=== PATIENT | male | born 1975 | race Caucasian/White ===

== ENCOUNTER 2019-01-05 11:38 | Emergency (ER) | payer BC, SELFPAY ==
[2019-01-05 11:39] VITALS: BP 155/92; PULSE 57; RESP 16; TEMP 36.3; O2SAT 98; BMI 34.1
--- NOTE | 2019-01-05 11:56 | CT_ITS ---
STUDY: CT ABDOMEN AND PELVIS WITHOUT CONTRAST REASON FOR EXAM: Male, 43 years old. Right lower quadrant pain RADIATION DOSAGE (If Supplied By Facility): CTDIvol = ( 18.31 ) mGy, DLP = ( 1043.32 ) mGycm TECHNIQUE: Transaxial images were obtained from the dome of the diaphragm to the symphysis pubis without oral contrast, and without intravenous contrast. Sagittal and coronal images were reconstructed. Individualized dose optimization techniques were used for this CT. COMPARISON: None. FINDINGS: Lack of intravenous contrast limits evaluation of abdominal and pelvic organs. The visualized lung bases are unremarkable. The visualized portions of the heart are within normal limits. Normal liver. Normal gallbladder and extrahepatic biliary system. Normal spleen. Normal pancreas. Normal bilateral adrenal glands. Normal right kidney. Normal left kidney. Normal visualized stomach. Normal small intestine. Normal colon. The appendix is visualized and appears normal. There is moderate aortobiiliac atherosclerotic disease there is mild infrarenal aortic ectasia. There is medially displaced curvilinear calcification in the infrarenal abdominal aorta which may represent intimal thickening and calcification, although dissection cannot be excluded.. Normal inferior vena cava. Normal retroperitoneum. Normal urinary bladder. Normal abdominal wall. Normal osseous structures. CT/Abdomen/Pelvis without Cont IMPRESSION: No acute abdominal or pelvic pathology. Chronic findings are described above. Electronically Signed: Janis Michael, at 12:50 EDT Tel , Service support ,
--- NOTE | 2019-01-05 11:59 | ED.DCSUM_ITS ---
- ER Visit Summary Date of Service: 01/05/19 Chief Complaint: [Abdominal pain] History of Present Illness: The patient is a 43 M [presents to the emergency department with complaint of abdominal pain x4 days. Patient states the pain is been intermittent and lasting up to 5 minutes at a time. Patient feels at times the pain rating to his right hip. This morning he had nausea and vomiting. Patient over the last 2 days has had 2 episodes of watery stool. He denies any fever. He denies urinary symptoms. He is never had pain like this before. Patient has a history of hypertension and high cholesterol. Patient has had 2 back surgeries in the past. Patient states food does not seem to affect his pain and is been eating and drinking normally. Patient also states pain worse with certain movements.] Physical Examination: [HEENT-PERRLA, EOMI. Cranial nerves II through XII grossly intact. TMs clear. Mucous membranes moist. No adenopathy. Cardiovascular-regular rate and rhythm without murmur or ectopy Lungs-clear to auscultation, chest wall stable without crepitus or subcu emphysema Abdomen-normoactive bowel sounds, soft. Patient has tenderness palpation over right lower quadrant over McBurney's. Patient has guarding. There is no rebound, rigidity, or perineal signs. Extremities-intact ?4, normal range of motion, normal pulses, atraumatic] Test Results: [CBC with differential obtained showed a white count of 7.3, hemoglobin 14, hematocrit 42, platelets 197. Chemistries were unremarkable. LFTs were normal. Urinalysis showed 10-25 RBCs otherwise no signs of infection. CT scan of the abdomen pelvis without contrast initially was unremarkable other than plaque noted within the terminal aorta and could not rule out dissection. CTA of the abdomen was obtained which showed no evidence of dissection. ] Emergency Department Course and Treatment: [Patient did not want anything for pain initially. ] Treatment Plan: [Patient given a prescription for Stigler for severe pain and advised to follow-up with primary care physician in 3 to 5 days.] Disposition: [Discharged home in stable condition] Impression: [Abdominal pain-etiology uncertain] This note was generated with [employer] software. It may contain incorrect words, spelling, and punctuation that were not noted in review of the chart prior to signing ED Disposition - Plan for ED Patient: Referrals: NOT,DEFINED [NON-STAFF] -
[2019-01-05] MEDS: 0.9% Normal Saline 1,000 ML 125 ML IV (12:18)
[2019-01-05 12:25] LABS: Absolute Lymphocyte Count 2.37 X10^3/ul (0.83-4.51); Basophil# 0.05 X10^3/uL; Basophil% 0.7 % (0-1); Eosinophil# 0.35 X10^3/uL; Eosinophils% 4.8 % (0-5); Hematocrit 41.7 % (40-54); Hemoglobin 14.1 g/dl (13.0-16.5); Lymphocyte # 2.37 X10^3/ul (4.0); Lymphocyte % 32.4 % (19-41); Mean Corp Hgb Conc 33.8 g/gl (32-36); Mean Corpuscular Hgb 30.6 pg (27.0-32.0); Mean Corpuscular Volume 90.5 fL (80-94); Mean Platelet Vol. 9.7 fl (6.2-12.0); Monocyte% 6.8 % (0-10); Neutrophil # 4.02 X10^3/uL (2.7-7.7); Neutrophil % 54.9 % (47-70); Platelet Count 197 K/mm3 (150-450); RBC Distribution Width CV 13.7 % (11.6-14.6); RBC Distribution Width SD 44.9 fl (35.1-43.9); Red Blood Count 4.61 M/mm3 (4.6-6.2); White Blood Count 7.3 K/mm3 (4.4-11.0)
[2019-01-05 12:26] LABS: POSITIVE COUNT NO; POSITIVE DIFFERENTIAL NO; POSITIVE MORPHOLOGY NO
[2019-01-05 12:38] LABS: ALB/GLOB Ratio 1.2 RATIO (0.9-2.4); AST(SGOT) 17 U/L (15-37); Alanine Aminotransfer ALT/SGPT 25 U/L (16-61); Albumin, Serum 3.5 g/dL (3.2-5.0); Alkaline Phosphatase 50 U/L (45-117); Anion Gap 4 (5-15); BUN 13 mg/dL (7-18); BUN/Creat Ratio 10.2 RATIO (10-20); Calcium,Total 8.7 mg/dL (8.5-10.1); Chloride 110 mmol/L (98-107); Creatinine, Serum 1.27 mg/dL (0.70-1.30); EST Glomerular Filtration Rate 66 mL/min (>60); Est Glom Filt Rate - Afr Amer 80 mL/min (>60); Glucose 90 mg/dL (74-106); Potassium 4.1 mmol/L (3.5-5.1); Protein, Total 6.5 g/dL (6.4-8.2); Sodium Level 141 mmol/L (136-145)
--- NOTE | 2019-01-05 13:04 | CT_ITS ---
STUDY: CTA OF THE ABDOMINAL AORTA AND BILATERAL LOWER EXTREMITIES REASON FOR EXAM: Male, 43 years old. Evaluate aortic abnormality RADIATION DOSAGE (If Supplied By Facility): CTDIvol = ( 29.37 ) mGy, DLP = ( 982.75 ) mGycm TECHNIQUE: Axial CT angiography multi-detector data acquisition was obtained from the lung bases to the mid pelvis following intravenous administration of 100 IV Isovue 300. Axial images and MIP images were reconstructed from the axial data set. Post-processing of the angiographic images was performed, with multiplanar reformation and 3D reconstruction. Individualized dose optimization techniques were used for this CT. TECHNICAL QUALITY: Good COMPARISON: None. Findings: The visualized lung bases are unremarkable. The visualized portions of the heart are within normal limits. Normal liver. Normal gallbladder and extrahepatic biliary system. Normal spleen. Normal pancreas. Normal bilateral adrenal glands. Normal right kidney. Normal left kidney. Normal visualized stomach. Normal small intestine. Normal colon. The appendix is visualized and appears normal. There is a noncalcified atheromatous plaque as well as atherosclerotic disease throughout much of the infrarenal abdominal aorta and bilateral common iliac arteries. This is most prominent on series 2 image 98, where there is mild ectasia and approximately 20-25% narrowing of the lumen. There is approximately 25% luminal narrowing of the proximal left common iliac artery. There is 20% narrowing of the distal right common iliac artery. There is approximately 40% narrowing of the proximal right internal iliac artery. There is no dissection. Normal inferior vena cava. Normal retroperitoneum. Normal abdominal wall. Normal osseous structures. CT/CTA Abdomen W/WO Contrast IMPRESSION: Noncalcified atheromatous plaque as well as atherosclerotic disease throughout much of the infrarenal abdominal aorta and bilateral common iliac arteries. This is most prominent on series 2 image 98, where there is mild ectasia and approximately 20-25% narrowing of the lumen. There is approximately 25% luminal narrowing of the proximal left common iliac artery. There is 20% narrowing of the distal right common iliac artery. There is approximately 40% narrowing of the proximal right internal iliac artery. There is no dissection. Electronically Signed: Janis Michael, at 13:57 EDT Tel , Service support ,
[2019-01-05 13:54] LABS: Bacteria 0 SEEN /hpf (None Seen); Mucous, Urine 0 SEEN /hpf (<or=2+)
[2019-01-05 13:56] VITALS: BP 134/70; PULSE 50; RESP 18; O2SAT 97
--- NOTE | 2019-01-05 13:57 | ED.RN ---
DENIES ABD PAIN AT THIS TME.
[2019-01-05 13:58] LABS: Color, Urine Yellow (Yellow); Glucose, Dipstick Normal (Normal); Ketone-Dipstick 5 mg/dl (Negative); Leukocyte Esterase-Dipstick 25 /ul (Negative); Nitrite-Dipstick Negative (Negative); Occult Blood-Urine 150 /ul (Negative); Protein-Dipstick 100 mg/dl (Negative); Specific Gravity, Urine 1.025 (1.002-1.030); Urine Bilirubin Dipstick Negative (Negative); Urine Clarity Sl. Cloudy (Clear); Urine Urobilinogen 1 mg/dl (Normal)
[2019-01-05 14:09] LABS: Red Blood Cells-Urine 10-25 SEEN /hpf (0-5); Squamous Epithelial Cells - UA 0-5 SEEN /hpf (0-5); White Blood Cells 0-5 SEEN /hpf (0-5)
--- NOTE | 2019-01-05 14:15 | ED.DEP ---
ED Disposition - Plan for ED Patient: Instructions: ED Abdominal Pain Unkn Cause Prescriptions: Hydrocodone Bitart/Apap 5-325 [[place] 5MG-325MG] 1 tab PO Q4H PRN PRN 2 Days #10 tab PRN Reason: Pain Referrals: NOT,DEFINED [NON-STAFF] - 3-5 Days
[2019-01-05 14:27] VITALS: BP 142/62; PULSE 71; RESP 17; O2SAT 98
== END 2019-01-05 14:30 | disposition home or self-care (01) ==
LOC: ED 12:23
PROVIDERS: Emergency Provider Emergency Medicine; PCP Family Medicine; Referring Provider Family Medicine
DX: R10.31 Right lower quadrant pain (principal); R11.2 Nausea with vomiting, unspecified; R19.7 Diarrhea, unspecified; I10 Essential (primary) hypertension; E78.00 Pure hypercholesterolemia, unspecified; Z79.82 Long term (current) use of aspirin; Z79.899 Other long term (current) drug therapy; Z72.0 Tobacco use
CPT/HCPCS: 74175; 74176; 80053; 81001; 85025; 96360; 96361; 99284; J7030; Q9967; A4216

== ENCOUNTER → 2019-01-26 | Outpatient (CLI) | payer BC, SELFPAY ==
[2019-01-05 11:39] VITALS: BMI 34.1
--- NOTE | 2019-01-26 14:50 | RAD_ITS ---
STUDY: X-RAY - LUMBAR SPINE REASON FOR EXAM: Male, 43 years old. Lower back pain TECHNIQUE: 5 view(s) of the lumbar spine were obtained. COMPARISON: None FINDINGS: There is no evidence of fracture or dislocation in the lumbar spine. There is mild to moderate disc space loss from L4 through S1. Facet arthropathy is present at the L5-S1 level. There are no significant degenerative changes. RAD/L/S Spine Min 4 Views IMPRESSION: No fracture or dislocation in the lumbar spine. Mild to moderate degenerative changes from L4 through S1. Electronically Signed: Jamaal Stark, at 21:36 EDT Tel , Service support ,
== END | disposition home or self-care (01) ==
LOC: RAD 14:45
PROVIDERS: Family Provider Family Medicine; PCP Family Medicine; Referring Provider Anesthesiology Pain Medicine; Visit Provider Anesthesiology Pain Medicine
DX: M51.37 Other intervertebral disc degeneration, lumbosacral region (principal)
CPT/HCPCS: 72110

== ENCOUNTER 2020-02-24 13:34 | Inpatient (IN) | payer OTHER, SELFPAY ==
[2020-02-24] VITALS (8 sets, daily range): BP systolic 140–155; BP diastolic 92–104; PULSE 66–83; RESP 16–18; TEMP 36.8–37.1; O2SAT 95–98; BMI 35.9; BMI 35.3
--- NOTE | 2020-02-24 14:03 | CT_ITS ---
STUDY: CT ABDOMEN AND PELVIS WITH CONTRAST REASON FOR EXAM: Male, 44 years old. LT SIDED ABD PAIN, PERITONITIS, HTN, PREV BACK SURG RADIATION DOSAGE (If Supplied By Facility): CTDIvol = ( 16.64 ) mGy, DLP = ( 1260.32 ) mGycm TECHNIQUE: Transaxial images were obtained from the dome of the diaphragm to the symphysis pubis without oral contrast. IV 100mL Isovue-300 was administered. Sagittal and coronal images were reconstructed. Individualized dose optimization techniques were used for this CT. COMPARISON: Comparison is made with prior examination dated January 05, 2019. FINDINGS: Mild increased markings at the lung bases with areas of confluence suggestive of bibasilar atelectasis. The visualized portions of the heart are within normal limits. Normal liver. Normal gallbladder and extrahepatic biliary system. Normal spleen. Normal pancreas. Normal bilateral adrenal glands. Normal right kidney. Normal left kidney. Normal visualized stomach. Normal small intestine. Increased peritoneal markings with thickening of the left pararenal space. There is circumferential mucosal thickening of the region of the splenic flexure as well as the descending colon increased markings are seen in the surrounding peritoneal fat. Findings are suggestive of colitis. The appendix is visualized and appears normal. There is scattered atherosclerotic calcification of the abdominal aorta, without a demonstrated aneurysm. Normal inferior vena cava. Normal retroperitoneum. Normal urinary bladder. Normal abdominal wall. Mild degree of disc space narrowing and disc degeneration at the L4-L5 level. CT/Abdomen/Pelvis W IV Cont ONLY IMPRESSION: Findings in keeping with a colitis involving the region of the splenic flexure and descending colon down to the sigmoid colon with increased markings in the surrounding peritoneal fat as well as the anterior pararenal space on the left side. Electronically Signed: Tristin Ozuna, at 15:18 EDT , Service support ,
[2020-02-24 14:27] LABS: Absolute Lymphocyte Count 1.54 X10^3/uL (0.83-4.51); Absolute Neutrophil Count 9.1 X10^3/uL (2.0-7.7); Basophil# 0.05 X10^3/uL; Basophil% 0.4 % (0-1); Eosinophil# 0.12 X10^3/uL; Hematocrit 46.6 % (40-54); Hemoglobin 15.5 g/dL (13.0-16.5); Lymphocyte # 1.54 X10^3/ul (4.0); Lymphocyte % 13.2 % (19-41); Mean Corp Hgb Conc 33.3 g/dL (32-36); Mean Corpuscular Hgb 30.5 pg (27.0-32.0); Mean Corpuscular Volume 91.6 fL (80-94); Mean Platelet Vol. 10.1 fl (6.2-12.0); Monocyte# 0.84 X10^3/uL; Monocyte% 7.2 % (0-10); NRBC Flagged by Analyzer 0 % (0-5); Neutrophil # 9.11 X10^3/uL (2.7-7.7); Neutrophil % 77.9 % (47-70); Platelet Count 204 K/mm3 (150-450); RBC Distribution Width CV 13.1 % (11.6-14.6); RBC Distribution Width SD 43.8 fl (35.1-43.9); Red Blood Count 5.09 M/mm3 (4.6-6.2); White Blood Count 11.7 K/mm3 (4.4-11.0)
[2020-02-24 14:38] LABS: ALB/GLOB Ratio 1.1 RATIO (0.9-2.4); AST(SGOT) 12 U/L (15-37); Alanine Aminotransfer ALT/SGPT 20 U/L (16-61); Albumin, Serum 3.6 g/dL (3.2-5.0); Alkaline Phosphatase 44 U/L (45-117); Anion Gap 6 (5-15); BUN 15 mg/dL (7-18); BUN/Creat Ratio 11.8 RATIO (10-20); Chloride 104 mmol/L (98-107); Creatinine, Serum 1.27 mg/dL (0.70-1.30); EST Glomerular Filtration Rate 66 mL/min (>60); Est Glom Filt Rate - Afr Amer 79 mL/min (>60); Estimated Creatinine Clearance 82.32 ml/min; Globulin 3.2 g/dL (2.2-4.2); Glucose 98 mg/dL (74-106); Potassium 3.8 mmol/L (3.5-5.1); Protein, Total 6.8 g/dL (6.4-8.2); Sodium Level 139 mmol/L (136-145)
[2020-02-24] MEDS: Ondansetron 4 MG/2 ML Vial IV (14:40)
[2020-02-24] MEDS: Morphine 4 MG/ML Syringe IV ×3 (14:40→23:51)
[2020-02-24 14:47] LABS: Lactic Acid 0.9 mmol/L (0.4-1.9)
--- NOTE | 2020-02-24 14:57 | ED.DCSUM_ITS ---
History of Present Illness Chief Complaint: Abd Pain Informant: Patient, Significant Other Onset: Yesterday - Onset of pain 1600 Context: Sudden Onset Timing: Continuous Quality: Pain Location: Left side worse left upper quadrant Current Severity: Mild Maximum Severity: Severe Worsened by: Movement, screening Relieved by: Nothing Associated Symptoms: Nausea, vomiting diarrhea Narrative: Patient is a 44-year-old male with past medical history of hypertension hypercholesterolemia who presents with left side abdominal pain started yesterday at 1600. There is no history of trauma. Prior to that he was working on a car. He does report nausea and vomiting. He reports 3 loose stools after taking laxative because he thought he was constipated. He has never had a bowel obstruction. He denies history of abdominal surgery. He denies dysuria, frequency, urgency or hematuria. He denies respiratory or upper respiratory infectious symptoms. He denies chest pain or cardiac symptoms. He denies history of diverticulitis. He denies history of renal ureterolithiasis. He has not noted a rash. He has taken ibuprofen for it with minimal improvement. Prior similar symptoms: No Recent Illness/Hospitalization: No - Past Medical History (1) Hypertension Status: Chronic (2) History of hypercholesterolemia Status: Acute Past Medical History - Allergies and Home Meds Allergies/Adverse Reactions: Allergies bee venom protein (honey bee) Allergy (Verified 02/24/20 13:35) Angioedema bupropion HCl [From Wellbutrin] Allergy (Verified 02/24/20 13:35) SEIZURES SEIZURES Primary Care Physician: Dex Elizabeth DO [Primary Care Provider] - Prior records reviewed: Yes Surgical History: no surgical history Lives: Spouse/ Significant Other Smoking Status: Current every day smoker Alcohol: None Drugs: None Review of Systems General: Denies: Chills, Fever, Malaise, Sweats Eyes: Denies: Visual changes - bilaterally, Blurred Vision - bilaterally ENT: Denies: Rhinorrhea, Sore throat Cardiovascular: Denies: Chest pain, Palpitations Respiratory: Denies: Dyspnea, Cough, Dyspnea on exertion Gastrointestinal: Reports: Abdominal pain, Nausea, Vomiting, Diarrhea, Constipation. Denies: Melena, Hematochezia, -, - Genitourinary: Denies: Dysuria, Hematuria, Frequency Musculoskeletal: Denies: Myalgias, Arthralgias, Neck pain, Back pain, Swelling, Extremity Pain, -, - Skin: Denies: Rash, Wounds Neurological: Denies: Headache, Weakness, Parasthesia, Numbness Hematologic: Denies: Easy bruising, Easy bleeding Physical Exam Vital Signs/Narrative: Vital Signs Temp Pulse Resp BP Pulse Ox 02/24/20 14:42 18 02/24/20 13:35 98.2 F 83 16 143/92 H 95 Inital Vital Signs reviewed: Yes General: Well nourished, Well developed, Obese, No Acute Distress Head: Normocephalic, Atraumatic Eyes: Perrl, EOMI. Negative for: Pale conjunctiva, Scleral icterus ENT: Moist mucous membranes, No rhinorrhea, TM's clear Neck: Supple, Nontender, No lymphadenopathy, No JVD Cardiovascular: Regular rate, Regular rhythm, No murmurs, Normal S1, Normal S2 Respiratory: No distress, CTA bilaterally, Chest nontender Abdomen: Soft, No masses, Tender, Guarding, Rebound tenderness, Hypoactive bowel sounds. Negative for: Nontender, Nondistended, Normal bowel sounds, Hyperactive bowel sounds, Hepatomegaly, Splenomegaly, Mass, Pulsatile mass, Ventral hernia, Umbilical hernia Rectal: Deferred Back: Nontender, Normal Inspection. Negative for: CVA tenderness Extremities: Nontender, No edema Skin: Normal color, No rash, No Trauma. Negative for: Cyanosis, Diaphoresis, Jaundice Neurological: Alert, Oriented x3, Cranial nerves II-XII grossly intact, Normal Strength, Normal Sensation Psychological: Normal affect, Normal Mood Diagnostic/Tx/Re-eval Impressions Abdomen/Pelvis CT 02/24/20 14:03 IMPRESSION: Findings in keeping with a colitis involving the region of the splenic flexure and descending colon down to the sigmoid colon with increased markings in the surrounding peritoneal fat as well as the anterior pararenal space on the left side. Electronically Signed: Tristin Ozuna, at 15:18 EDT , Service support , 02/24/20 14:03 Abdomen/Pelvis W IV Cont ONLY [CT] Stat Laboratory Results 02/24/20 02/24/20 02/24/20 14:15 14:15 14:15 WBC 11.7 H RBC 5.09 Hgb 15.5 Hct 46.6 MCV 91.6 MCH 30.5 MCHC 33.3 RDW Std Deviation 43.8 RDW Coeff of Shad 13.1 Plt Count 204 MPV 10.1 Immature Gran % (Auto) 0.300 Neut % (Auto) 77.9 H Lymph % (Auto) 13.2 L [place] % (Auto) 7.2 Eos % (Auto) 1.0 Baso % (Auto) 0.4 Absolute Neuts (auto) 9.1 H Absolute Lymphs (auto) 1.54 Nucleated RBC % 0 Sodium 139 Potassium 3.8 Chloride 104 Carbon Dioxide 29.0 Anion Gap 6 BUN 15 Creatinine 1.27 Estim Creat Clear Calc 82.32 Est GFR (MDRD) Af Amer 79 Est GFR (MDRD) Non-Af 66 BUN/Creatinine Ratio 11.8 Glucose 98 Lactic Acid 0.9 Calcium 9.0 Total Bilirubin 0.60 AST 12 L ALT 20 Alkaline Phosphatase 44 L Total Protein 6.8 Albumin 3.6 Globulin 3.2 Albumin/Globulin Ratio 1.1 Patient was informed of his results. Patient has peritonitis left upper and left lower quadrant. Since he has peritonitis even though his white count is only slightly elevate 11.7 he will receive a dose of Zosyn and hospitalist has been paged for admission. - Medical Decision Making Sided abdominal pain and peritoneal findings need to evaluate for perforated viscus, diverticulitis, atypical presentation for appendicitis, inflammatory bowel disorder. CT of the abdomen with IV contrast was ordered along with blood work. White count is elevated 11.7 thousand. He was medicated with IV Zofran and morphine. He also received a 500 cc bolus of normal saline. ED Disposition - Plan for ED Patient: Disposition: Acute Care Hospital [facility] Diagnosis: Colitis, acute, Peritonitis, acute generalized Referrals: Dex Elizabeth DO [Primary Care Provider] -
[2020-02-24] MEDS: morphine 8 MG/ML Syringe 6 MG IV (17:01)
--- NOTE | 2020-02-24 17:06 | HP.PCM_ITS ---
History of Present Illness Date of Admission: 02/24/20 Chief Complaint: abdominal pain The patient is a 44 year old M with a past medical history as outlined was admitted through the ED on 02/24/2020 with a complaint of abdominal pain which started on the day of admission. Pain was initially left-sided and became generalized, was sharp and cramping with no aggravating or relieving factors. Patient states the day before admission, he thought he was constipated so he took a laxative and had 3 episodes of diarrhea afterwards. He denies any fever or chills but admits to having a few episodes of vomiting. He is never had such abdominal pain before. Review of systems is otherwise negative. On admission in the ED, vitals showed temperature of 98.3 Fahrenheit with blood pressure of 140/98, pulse rate of 67 and respiratory rate of 18. He was saturating at 98% on room air. Chemistry was essentially unremarkable and CBC showed hemoglobin of 15.5 with WBC of 11.7. CT of the abdomen and pelvis showed colitis involving the region of the splenic flexure and descending colon down to the sigmoid colon with increased markings in the surrounding peritoneal fat as well as the anterior pararenal space on the left side. He has been admitted to be managed for acute colitis. [] Past Medical History Past Medical History (Chronic Problems): Chronic Problems Hypertension (Chronic) Allergies bee venom protein (honey bee) Allergy (Verified 02/24/20 13:35) Angioedema bupropion HCl [From Wellbutrin] Allergy (Verified 02/24/20 13:35) SEIZURES SEIZURES Home Medications: Ambulatory Orders Medication Instructions Recorded Aspirin [Aspirin, Baby] 81 mg PO DAILY@0800 06/18/13 Gabapentin [Neurontin] 300 mg PO TID PRN PRN 06/18/13 Lisinopril [Zestril] 20 mg PO DAILY 06/18/13 Metoprolol Tartrate [Lopressor] 50 mg PO BID 06/18/13 Pravastatin [Pravachol] 80 mg PO DAILY 06/18/13 Epi Pen (for allergic rxn) [Epi 0.3 mg IM X1 #1 syringe 04/19/14 Pen] Baclofen [Lioresal] 10 mg PO DAILY PRN PRN 02/24/20 Meloxicam [Mobic] 15 mg PO DAILY 02/24/20 Varenicline Tartrate [Chantix] 1 tab PO BID 02/24/20 Surgical History: no surgical history Lives: Spouse/ Significant Other Smoking Status: Heavy Smoker (>10/day) Tobacco Use: Cigarettes Alcohol: None Drugs: None Review of Systems Constitutional: Denies: Chills, Fever, Malaise, Weakness, Weight Change Eyes: Denies: Blurred vision HEENT: Denies: Head Aches, Sinus Congestion, Sinus Drainage Cardiovascular: Denies: Chest Pain, Palpitations Respiratory: Denies: Cough, Shortness of Breath, Shortness of breath at rest, Shortness of breath upon exertion, Sputum production Gastrointestinal: Reports: Abdominal Pain, Diarrhea, Vomiting. Denies: Dyspepsia, Hematemesis, Hematochezia, Nausea Genitourinary: Denies: Dysuria Musculoskeletal: Denies: Joint Pain, Joint Tenderness Skin: Denies: Rash, Wounds Neurological: Denies: Numbness, Tingling, Focal weakness Psychiatric: Denies: Anxiety, Depression, Homicidal Ideations, Suicidal Ideations Hematologic/ Lymphatic: Denies: Easy Bruising, Easy Bleeding VTE Information - Inpt Only VTE Present on Admission: No VTE Pharm Prophylaxis ordered?: Yes Patient Problems: Active and Suspected Problems Colitis, acute (Acute) Peritonitis, acute generalized (Acute) - Physical Exam Vitals/I&O's: Vital Signs Temp Pulse Resp BP Pulse Ox 98.2 F 68 18 155/97 H 98 02/24/20 13:35 02/24/20 16:53 02/24/20 16:53 02/24/20 16:53 02/24/20 16:53 Oxygen Delivery Method Room Air Weight: 265 lb Body Mass Index (BMI) 35.9 General: Alert, Oriented x3, Cooperative, No apparent distress HEENT: Atraumatic, PERRLA, EOMI, Normocephalic Oral: Dry Mucosa Neck: Supple, No JVD, Negative Carotid Bruits Lungs: Clear to auscultation, Normal air movement, No rhonchi, No wheeze Cardiovascular: Regular rate, Regular Rhythm, Normal S1, Normal S2, No murmurs Abdomen: Bowel Sounds Present, Soft, - - moderate tenderness, mainly in the suprapubic and right lower quadrant region. no guarding or rebound tenderness Extremities: No clubbing, No cyanosis, No edema, Capillary Refill Less than 3 Seconds Skin: No rashes, No breakdown Musculoskeletal: No Tenderness to Palpation of Joints or Extremities Lymphatic: No Cervical, Supraclavicular, or Inguinal Adenopathy Neurological: Cranial nerves II-XII grossly intact, Neuro grossly intact, Motor Exam 5/5 strength throughout Psych/Mental Status: Normal Affect, Appropriate, Alert and oriented to time, place, person, mood and affect Laboratory Results 02/24/20 14:15: WBC 11.7 H, RBC 5.09, Hgb 15.5, Hct 46.6, MCV 91.6, MCH 30.5, MCHC 33.3, RDW Std Deviation 43.8, RDW Coeff of Shad 13.1, Plt Count 204, MPV 10.1, Immature Gran % (Auto) 0.300, Neut % (Auto) 77.9 H, Lymph % (Auto) 13.2 L, [place] % (Auto) 7.2, Eos % (Auto) 1.0, Baso % (Auto) 0.4, Absolute Neuts (auto) 9.1 H, Absolute Lymphs (auto) 1.54, Nucleated RBC % 0 02/24/20 14:15: Sodium 139, Potassium 3.8, Chloride 104, Carbon Dioxide 29.0, Anion Gap 6, BUN 15, Creatinine 1.27, Estim Creat Clear Calc 82.32, Est GFR (MDRD) Af Amer 79, Est GFR (MDRD) Non-Af 66, BUN/Creatinine Ratio 11.8, Glucose 98, Calcium 9.0, Total Bilirubin 0.60, AST 12 L, ALT 20, Alkaline Phosphatase 44 L, Total Protein 6.8, Albumin 3.6, Globulin 3.2, Albumin/Globulin Ratio 1.1 02/24/20 14:15: Lactic Acid 0.9 Diagnostic Data Abdomen/Pelvis CT 02/24/20 14:03 IMPRESSION: Findings in keeping with a colitis involving the region of the splenic flexure and descending colon down to the sigmoid colon with increased markings in the surrounding peritoneal fat as well as the anterior pararenal space on the left side. Electronically Signed: Tristin Ozuna, at 15:18 EDT , Service support , Current Medications Piperacillin Sod/Tazobactam (Sod 4.5 gm/ Sodium Chloride) 100 mls @ 200 mls/hr IV X1 ONE Stop: 02/24/20 17:06 Last Admin: 02/24/20 17:01 Dose: 200 mls/hr Documented by: Assessment/Plan All Active Problems History of hypercholesterolemia (Acute) Colitis, acute (Acute) Peritonitis, acute generalized (Acute) 44 y/o admitted with a complaint of abdominal pain 1. Acute colitis * admit to Med surg * CT abdomen and pelvis showed colitis involving the region of the splenic flexure and descending colon down to the sigmoid colon with increased markings in the surrounding peritoneal fat as well as the anterior pararenal space on the left side. * Keep NPO * wbc is 11.7 * hydrate with IVF NS @ 150cc/hr * give IV morphine prn * start IV zosyn * consult general surgery * 2. Hypertension: on lisinopril and metoprolol. 3. Hyperlipidemia: on statin DVT prophylaxis; lovenox Code status: full code * Patient counseled extensively about different types of CODE STATUS including full code, DNR CCA and DNR CCA. Patient elects to be full code. * Total [id number] time 16 minutes. Inpatient E&M: 68256 Init Hosp L3 Procedures: 86055 Advncd Care Plan 30 Min
[2020-02-24] MEDS: 0.9% Normal Saline 1,000 ML 150 ML IV (18:42)
--- NOTE | 2020-02-24 18:53 | CON.PCM_ITS ---
Problem List (1) Colitis, acute Status: Acute Reason for Consult Date of Consultation: 02/24/20 History of Present Illness: The patient is a 44 year old M with a past medical history as outlined was admitted through the ED on 02/24/2020 with a complaint of abdominal pain which started on the day of admission. He was in the process of changing the brakes on his 's car. Pain was initially left-sided and became generalized, was sharp and cramping with no aggravating or relieving factors. Patient states the day before admission, he thought he was constipated so he took a laxative and had 3 episodes of diarrhea afterwards. He denies any fever or chills but admits to having a few episodes of vomiting. He is never had such abdominal pain before. Review of systems is otherwise negative. On admission in the ED, vitals showed temperature of 98.3 Fahrenheit with blood pressure of 140/98, pulse rate of 67 and respiratory rate of 18. He was saturating at 98% on room air. Chemistry was essentially unremarkable and CBC showed hemoglobin of 15.5 with WBC of 11.7. CT of the abdomen and pelvis showed colitis involving the region of the splenic flexure and descending colon down to the sigmoid colon with increased markings in the surrounding peritoneal fat as well as the anterior pararenal space on the left side. He has been admitted to be managed for acute colitis. Past Medical History Past Medical History (Chronic Problems): Chronic Problems Hypertension (Chronic) Allergies bee venom protein (honey bee) Allergy (Verified 02/24/20 13:35) Angioedema bupropion HCl [From Wellbutrin] Allergy (Verified 02/24/20 13:35) SEIZURES SEIZURES Home Medications: Ambulatory Orders Medication Instructions Recorded Aspirin [Aspirin, Baby] 81 mg PO DAILY@0800 06/18/13 Gabapentin [Neurontin] 300 mg PO TID PRN PRN 06/18/13 Lisinopril [Zestril] 20 mg PO DAILY 06/18/13 Metoprolol Tartrate [Lopressor] 50 mg PO BID 06/18/13 Pravastatin [Pravachol] 80 mg PO DAILY 06/18/13 Epi Pen (for allergic rxn) [Epi 0.3 mg IM X1 #1 syringe 04/19/14 Pen] Baclofen [Lioresal] 10 mg PO DAILY PRN PRN 02/24/20 Meloxicam [Mobic] 15 mg PO DAILY 02/24/20 Varenicline Tartrate [Chantix] 1 tab PO BID 02/24/20 Surgical History: no surgical history Lives: Spouse/ Significant Other Smoking Status: Heavy Smoker (>10/day) Tobacco Use: Cigarettes Alcohol: None Drugs: None - *Family History Maternal History Items: No pertinent history Review of Systems Constitutional: Reports: Anorexia. Denies: Chills, Fever Cardiovascular: Reports: Chest Pain Respiratory: Denies: Cough, Hemoptysis, Shortness of breath at rest, Shortness of breath upon exertion, Wheezing Gastrointestinal: Reports: Abdominal Pain, Diarrhea, Vomiting. Denies: Hematochezia, Melena Genitourinary: Denies: Dysuria, Frequency, Hematuria, Urgency Patient Problems: Active and Suspected Problems Colitis, acute (Acute) Peritonitis, acute generalized (Acute) - Physical Exam Vitals/I&O's: Vital Signs Temp Pulse Resp BP Pulse Ox 98.3 F 67 18 140/98 H 98 02/24/20 17:51 02/24/20 17:51 02/24/20 17:51 02/24/20 17:51 02/24/20 17:51 Oxygen Delivery Method Room Air Weight: 260 lb 4.8 oz Body Mass Index (BMI) 35.3 Intake and Output for Last 24 Hours 02/22/20 02/23/20 02/24/20 23:59 23:59 23:59 Intake Total 600 / 600 Balance 600 / 600 General: Alert, Oriented x3 Neck: Supple, No JVD Lungs: Clear to auscultation Abdomen: Bowel Sounds Present, Distended, Obese, Tender - No peritoneal signs or rebound is identified Extremities: No clubbing, No cyanosis, No edema Skin: No rashes, No breakdown Laboratory Results 02/24/20 14:15: WBC 11.7 H, RBC 5.09, Hgb 15.5, Hct 46.6, MCV 91.6, MCH 30.5, MCHC 33.3, RDW Std Deviation 43.8, RDW Coeff of Shad 13.1, Plt Count 204, MPV 10.1, Immature Gran % (Auto) 0.300, Neut % (Auto) 77.9 H, Lymph % (Auto) 13.2 L, [place] % (Auto) 7.2, Eos % (Auto) 1.0, Baso % (Auto) 0.4, Absolute Neuts (auto) 9.1 H, Absolute Lymphs (auto) 1.54, Nucleated RBC % 0 02/24/20 14:15: Sodium 139, Potassium 3.8, Chloride 104, Carbon Dioxide 29.0, Anion Gap 6, BUN 15, Creatinine 1.27, Estim Creat Clear Calc 82.32, Est GFR (MDRD) Af Amer 79, Est GFR (MDRD) Non-Af 66, BUN/Creatinine Ratio 11.8, Glucose 98, Calcium 9.0, Total Bilirubin 0.60, AST 12 L, ALT 20, Alkaline Phosphatase 44 L, Total Protein 6.8, Albumin 3.6, Globulin 3.2, Albumin/Globulin Ratio 1.1 02/24/20 14:15: Lactic Acid 0.9 Current Medications Dextrose (D50w Syringe) 0 gm IV X1 PRN; Protocol PRN Reason: Hypoglycemia Enoxaparin Sodium (Lovenox) 40 mg SC DAILY KADEN Epinephrine HCl () 0.3 mg IM X1 PRN PRN Reason: ALLERGIC RXN Glucagon () 1 mg IM .X1 PRN PRN Reason: Hypoglycemia Sodium Chloride () 1,000 mls @ 150 mls/hr IV .[id number] KADEN Stop: 02/25/20 07:29 Last Admin: 02/24/20 18:42 Dose: 150 mls/hr Documented by: Cefepime HCl 1 gm/ Sodium (Chloride) 50 mls @ 100 mls/hr IV Q8 KADEN Metronidazole (Flagyl) 500 mg in 100 mls @ 100 mls/hr IV Q8 KADEN Morphine Sulfate () 4 mg IV Q3H PRN PRN PRN Reason: Pain Score 6-10/10 Ondansetron HCl (Zofran) 4 mg IV Q8H PRN PRN PRN Reason: NAUSEA/VOMITING Sodium Chloride () 10 - 40 ml IV UD PRN PRN Reason: SALINE FLUSH Assessment/Plan All Active Problems History of hypercholesterolemia (Acute) Colitis, acute (Acute) Peritonitis, acute generalized (Acute) At the present time I agree with medical management. It would be unlikely that we will have to do any surgery on him. Would make him n.p.o. until his pain has resolved. I do not think I am going to want to do a colonoscopy on him at this admission hopefully he will resolve and I will see him as an outpatient and do a colonoscopy then. Office Visits / Consults: [id number] IP Consult L3
[2020-02-24] MEDS: metroNIDAZOLE 500 MG/100 ML BAG 100 MG IV (19:10)
[2020-02-25] VITALS (11 sets, daily range): BP systolic 134–147; BP diastolic 75–99; PULSE 75–100; RESP 16–18; TEMP 37.1–37.3; O2SAT 92–96
[2020-02-25] MEDS: 0.9% Normal Saline 1,000 ML 150 ML IV (03:10)
[2020-02-25] MEDS: metroNIDAZOLE 500 MG/100 ML BAG 100 MG IV ×3 (06:10→21:22)
[2020-02-25 06:14] LABS: Absolute Lymphocyte Count 1.25 X10^3/uL (0.83-4.51); Absolute Neutrophil Count 7.8 X10^3/uL (2.0-7.7); Basophil# 0.04 X10^3/uL; Basophil% 0.4 % (0-1); Eosinophil# 0.14 X10^3/uL; Eosinophils% 1.4 % (0-5); Hematocrit 45.9 % (40-54); Hemoglobin 14.9 g/dL (13.0-16.5); Lymphocyte # 1.25 X10^3/ul (4.0); Lymphocyte % 12.4 % (19-41); Mean Corp Hgb Conc 32.5 g/dL (32-36); Mean Corpuscular Hgb 30.3 pg (27.0-32.0); Mean Corpuscular Volume 93.5 fL (80-94); Mean Platelet Vol. 10.6 fl (6.2-12.0); Monocyte# 0.83 X10^3/uL; Monocyte% 8.2 % (0-10); NRBC Flagged by Analyzer 0 % (0-5); Neutrophil # 7.79 X10^3/uL (2.7-7.7); Neutrophil % 77.2 % (47-70); Platelet Count 168 K/mm3 (150-450); RBC Distribution Width CV 13.2 % (11.6-14.6); Red Blood Count 4.91 M/mm3 (4.6-6.2); White Blood Count 10.1 K/mm3 (4.4-11.0)
[2020-02-25 06:47] LABS: Anion Gap 8 (5-15); BUN 11 mg/dL (7-18); BUN/Creat Ratio 9.2 RATIO (10-20); Calcium,Total 8.4 mg/dL (8.5-10.1); Chloride 105 mmol/L (98-107); EST Glomerular Filtration Rate 70 mL/min (>60); Est Glom Filt Rate - Afr Amer 85 mL/min (>60); Estimated Creatinine Clearance 87.12 ml/min; Glucose 89 mg/dL (74-106); Potassium 4.2 mmol/L (3.5-5.1); Sodium Level 138 mmol/L (136-145)
[2020-02-25] MEDS: Enoxaparin 40 MG/0.4 ML Syringe SC (07:48)
--- NOTE | 2020-02-25 10:33 | PCM.PN.HOSP ---
Patient Problems: Active and Suspected Problems Colitis, acute (Acute) Peritonitis, acute generalized (Acute) Subjective: Patient seen and examined. He has been managed for acute colitis. He still complains of some abdominal pain but states is getting much better. He denies any nausea or vomiting, fever or chills. Review of systems otherwise negative. Labs and vitals reviewed. He has remained hemodynamically stable. WBC is trended down from 11.7-10.1. Vitals/I&O's: Vital Signs Temp Pulse Resp BP Pulse Ox 99.1 F 91 16 140/81 H 92 02/25/20 07:45 02/25/20 09:22 02/25/20 07:45 02/25/20 07:45 02/25/20 07:45 Oxygen Delivery Method Room Air Weight: 260 lb 4.8 oz Body Mass Index (BMI) 35.3 Intake and Output for Last 24 Hours 02/23/20 02/24/20 02/25/20 23:59 23:59 23:59 Intake Total 1027.5 / 1027.5 1247.5 / 1247.5 Output Total 1075 / 1075 Balance 1027.5 / 527.5 172.5 / 172.5 General: Alert, Oriented x3, Cooperative, No apparent distress HEENT: Atraumatic, PERRLA, EOMI, Normocephalic Oral: Dry Mucosa Neck: Supple, No JVD, Negative Carotid Bruits Lungs: Clear to auscultation, Normal air movement, No rhonchi, No wheeze Cardiovascular: Regular rate, Regular Rhythm, Normal S1, Normal S2, No murmurs Abdomen: Bowel Sounds Present, Soft, - - mild generalised tenderness, no guarding or rebound tenderness Extremities: No clubbing, No cyanosis, No edema, Capillary Refill Less than 3 Seconds Skin: No rashes, No breakdown Musculoskeletal: No Tenderness to Palpation of Joints or Extremities Lymphatic: No Cervical, Supraclavicular, or Inguinal Adenopathy Neurological: Cranial nerves II-XII grossly intact, Neuro grossly intact, Motor Exam 5/5 strength throughout Psych/Mental Status: Normal Affect, Appropriate, Alert and oriented to time, place, person, mood and affect Laboratory Results 02/24/20 14:15: WBC 11.7 H, RBC 5.09, Hgb 15.5, Hct 46.6, MCV 91.6, MCH 30.5, MCHC 33.3, RDW Std Deviation 43.8, RDW Coeff of Shad 13.1, Plt Count 204, MPV 10.1, Immature Gran % (Auto) 0.300, Neut % (Auto) 77.9 H, Lymph % (Auto) 13.2 L, [place] % (Auto) 7.2, Eos % (Auto) 1.0, Baso % (Auto) 0.4, Absolute Neuts (auto) 9.1 H, Absolute Lymphs (auto) 1.54, Nucleated RBC % 0 02/24/20 14:15: Sodium 139, Potassium 3.8, Chloride 104, Carbon Dioxide 29.0, Anion Gap 6, BUN 15, Creatinine 1.27, Estim Creat Clear Calc 82.32, Est GFR (MDRD) Af Amer 79, Est GFR (MDRD) Non-Af 66, BUN/Creatinine Ratio 11.8, Glucose 98, Calcium 9.0, Total Bilirubin 0.60, AST 12 L, ALT 20, Alkaline Phosphatase 44 L, Total Protein 6.8, Albumin 3.6, Globulin 3.2, Albumin/Globulin Ratio 1.1 02/24/20 14:15: Lactic Acid 0.9 02/25/20 05:42: WBC 10.1, RBC 4.91, Hgb 14.9, Hct 45.9, MCV 93.5, MCH 30.3, MCHC 32.5, RDW Std Deviation 45.0 H, RDW Coeff of Shad 13.2, Plt Count 168, MPV 10.6, Immature Gran % (Auto) 0.400, Neut % (Auto) 77.2 H, Lymph % (Auto) 12.4 L, [place] % (Auto) 8.2, Eos % (Auto) 1.4, Baso % (Auto) 0.4, Absolute Neuts (auto) 7.8 H, Absolute Lymphs (auto) 1.25, Nucleated RBC % 0 02/25/20 05:42: Sodium 138, Potassium 4.2, Chloride 105, Carbon Dioxide 25.0, Anion Gap 8, BUN 11, Creatinine 1.20, Estim Creat Clear Calc 87.12, Est GFR (MDRD) Af Amer 85, Est GFR (MDRD) Non-Af 70, BUN/Creatinine Ratio 9.2 L, Glucose 89, Calcium 8.4 L Current Medications Dextrose (D50w Syringe) 0 gm IV X1 PRN; Protocol PRN Reason: Hypoglycemia Enoxaparin Sodium (Lovenox) 40 mg SC DAILY [facility] Last Admin: 02/25/20 07:48 Dose: 40 mg Documented by: Epinephrine HCl () 0.3 mg IM X1 PRN PRN Reason: ALLERGIC RXN Glucagon () 1 mg IM .X1 PRN PRN Reason: Hypoglycemia Cefepime HCl 1 gm/ Sodium (Chloride) 50 mls @ 100 mls/hr IV Q8 [facility] Last Infusion: 02/25/20 06:00 Dose: Infused Documented by: Metronidazole (Flagyl) 500 mg in 100 mls @ 100 mls/hr IV Q8 [facility] Last Infusion: 02/25/20 07:10 Dose: Infused Documented by: Morphine Sulfate () 4 mg IV Q3H PRN PRN PRN Reason: Pain Score 6-10/10 Last Admin: 02/24/20 23:51 Dose: 4 mg Documented by: Ondansetron HCl (Zofran) 4 mg IV Q8H PRN PRN PRN Reason: NAUSEA/VOMITING Sodium Chloride () 10 - 40 ml IV UD PRN PRN Reason: SALINE FLUSH STROKE Vital Signs/Narrative: Vital Signs Temp Pulse Resp BP Pulse Ox 02/25/20 09:22 91 02/25/20 07:45 99.1 F 92 16 140/81 H 92 Medical Necessity - Tobacco Use Smoking Status: Heavy Smoker (>10/day) Tobacco Use: Cigarettes Assessment/Plan All Active Problems History of hypercholesterolemia (Acute) Colitis, acute (Acute) Peritonitis, acute generalized (Acute) 44 y/o admitted with a complaint of abdominal pain 1. Acute colitis abdomen is less tender today CT abdomen and pelvis showed colitis involving the region of the splenic flexure and descending colon down to the sigmoid colon with increased markings in the surrounding peritoneal fat as well as the anterior pararenal space on the left side. continue keeping NPO and continue hydrating with IVF. If pain improves, will start on clear liquid diet continue hydration with IVF NS @ 150cc/hr on iV cefepime and flagyl. general surgery on board- agree with conservative management for now on IV morphine prn 2. Hypertension: on lisinopril and metoprolol. 3. Hyperlipidemia: on statin DVT prophylaxis; lovenox Code status: full code Patient counseled extensively about different types of CODE STATUS including full code, DNR CCA and DNR CCA. Patient elects to be full code. Total [id number] time 16 minutes. Inpatient E&M: 90031 Subs Hosp L2
--- NOTE | 2020-02-25 12:07 | PCM.PN.SRG ---
Patient Problems: Active and Suspected Problems Colitis, acute (Acute) Peritonitis, acute generalized (Acute) Subjective: Patient states that he still having some pain but he has significantly improved from his admission. He is not complaining of any diarrhea but has not had any bowel movements as of yet. Objective: Abdomen is soft and nontender. - Physical Exam Vitals/I&O's: Vital Signs Temp Pulse Resp BP Pulse Ox 99.1 F 91 16 140/81 H 92 02/25/20 07:45 02/25/20 09:22 02/25/20 07:45 02/25/20 07:45 02/25/20 07:45 Oxygen Delivery Method Room Air Weight: 260 lb 4.8 oz Body Mass Index (BMI) 35.3 Intake and Output for Last 24 Hours 02/23/20 02/24/20 02/25/20 23:59 23:59 23:59 Intake Total 1027.5 / 1027.5 1247.5 / 1247.5 Output Total 1075 / 1075 Balance 1027.5 / 527.5 172.5 / 172.5 Laboratory Results 02/24/20 14:15: WBC 11.7 H, RBC 5.09, Hgb 15.5, Hct 46.6, MCV 91.6, MCH 30.5, MCHC 33.3, RDW Std Deviation 43.8, RDW Coeff of Shad 13.1, Plt Count 204, MPV 10.1, Immature Gran % (Auto) 0.300, Neut % (Auto) 77.9 H, Lymph % (Auto) 13.2 L, [place] % (Auto) 7.2, Eos % (Auto) 1.0, Baso % (Auto) 0.4, Absolute Neuts (auto) 9.1 H, Absolute Lymphs (auto) 1.54, Nucleated RBC % 0 02/24/20 14:15: Sodium 139, Potassium 3.8, Chloride 104, Carbon Dioxide 29.0, Anion Gap 6, BUN 15, Creatinine 1.27, Estim Creat Clear Calc 82.32, Est GFR (MDRD) Af Amer 79, Est GFR (MDRD) Non-Af 66, BUN/Creatinine Ratio 11.8, Glucose 98, Calcium 9.0, Total Bilirubin 0.60, AST 12 L, ALT 20, Alkaline Phosphatase 44 L, Total Protein 6.8, Albumin 3.6, Globulin 3.2, Albumin/Globulin Ratio 1.1 02/24/20 14:15: Lactic Acid 0.9 02/25/20 05:42: WBC 10.1, RBC 4.91, Hgb 14.9, Hct 45.9, MCV 93.5, MCH 30.3, MCHC 32.5, RDW Std Deviation 45.0 H, RDW Coeff of Shad 13.2, Plt Count 168, MPV 10.6, Immature Gran % (Auto) 0.400, Neut % (Auto) 77.2 H, Lymph % (Auto) 12.4 L, [place] % (Auto) 8.2, Eos % (Auto) 1.4, Baso % (Auto) 0.4, Absolute Neuts (auto) 7.8 H, Absolute Lymphs (auto) 1.25, Nucleated RBC % 0 02/25/20 05:42: Sodium 138, Potassium 4.2, Chloride 105, Carbon Dioxide 25.0, Anion Gap 8, BUN 11, Creatinine 1.20, Estim Creat Clear Calc 87.12, Est GFR (MDRD) Af Amer 85, Est GFR (MDRD) Non-Af 70, BUN/Creatinine Ratio 9.2 L, Glucose 89, Calcium 8.4 L Current Medications Dextrose (D50w Syringe) 0 gm IV X1 PRN; Protocol PRN Reason: Hypoglycemia Enoxaparin Sodium (Lovenox) 40 mg SC DAILY [facility] Last Admin: 02/25/20 07:48 Dose: 40 mg Documented by: Epinephrine HCl () 0.3 mg IM X1 PRN PRN Reason: ALLERGIC RXN Glucagon () 1 mg IM .X1 PRN PRN Reason: Hypoglycemia Cefepime HCl 1 gm/ Sodium (Chloride) 50 mls @ 100 mls/hr IV Q8 [facility] Last Infusion: 02/25/20 06:00 Dose: Infused Documented by: Metronidazole (Flagyl) 500 mg in 100 mls @ 100 mls/hr IV Q8 [facility] Last Infusion: 02/25/20 07:10 Dose: Infused Documented by: Morphine Sulfate () 4 mg IV Q3H PRN PRN PRN Reason: Pain Score 6-10/10 Last Admin: 02/24/20 23:51 Dose: 4 mg Documented by: Ondansetron HCl (Zofran) 4 mg IV Q8H PRN PRN PRN Reason: NAUSEA/VOMITING Sodium Chloride () 10 - 40 ml IV UD PRN PRN Reason: SALINE FLUSH Medical Necessity - Tobacco Use Smoking Status: Heavy Smoker (>10/day) Tobacco Use: Cigarettes Assessment/Plan All Active Problems History of hypercholesterolemia (Acute) Colitis, acute (Acute) Peritonitis, acute generalized (Acute) Making improvements. Plan will still be to see him in an outpatient fashion to schedule him for colonoscopy. Inpatient E&M: [id number] Init Hosp L2
[2020-02-25] MEDS: 0.9% Saline Lock 10 ML Syringe IV ×3 (12:37→21:22)
--- NOTE | 2020-02-25 12:50 | CASEMGMT ---
RN CM MANAGER SWITCH CM to room to meet with patient for initial transition planning/care coordination assessment. TODD CARRERA introduced self and role at [facility]. Pt voices understanding and consents to assessment at this time. Pt resting in bed in no distress at this time. Pt is A/O at this time and answers all questions appropriately. Care providers, pharmacy, and demographics verified/updated at this time. PCP: Dr Dex Elizabeth Specialists: Dr Hilario--pain mgmt Preferred Pharmacy: [facility] Insurance: Commercial thru [facility] Living Will/HPOA: States does not have LW or HCPOA . Interested in more information but states does not want to talk with SW at this time to complete paperwork. Provided information on advanced directives and given Social Service rac card with number to call if chooses in the future to utilize [facility] social work for advanced directive completion. LNOK: Living Arrangements: Lives w/. Independent Transportation: Pt states drives self and states no transportation concerns at this time. will take pt home @ d/c DME: Denies using any DME and denies needs. HHC/SNF: No history and no needs identified. Pt wishes to return home and states has no concerns with going home at time of discharge. CM to follow for any discharge planning/needs. Pt voices no concerns/needs at this time. Advised pt to ask for CM if any further questions/concerns/needs arise. Voices understanding. PLAN: Home Bessy BEARD RN, CM
--- NOTE | 2020-02-25 14:21 | NURSING ---
c/o prince rates 02/22, states it is due to elevated bp, this nurse called pharmacy to send antihypertensive meds for pt.
[2020-02-25] MEDS: Metoprolol Tartrate 100 MG Tablet PO (14:55)
[2020-02-25] MEDS: Lisinopril 20 MG Tablet PO (14:55)
[2020-02-25] MEDS: Acetaminophen 325 MG Tablet 650 MG PO (17:12)
[2020-02-25] MEDS: Varenicline 1 MG Tablet PO (21:21)
[2020-02-25] MEDS: Pravastatin 80 MG Tablet PO (21:21)
[2020-02-26] VITALS (7 sets, daily range): BP systolic 120–143; BP diastolic 69–100; PULSE 70–101; RESP 18; TEMP 37–37.2; O2SAT 95–99
[2020-02-26] MEDS: Acetaminophen 325 MG Tablet 650 MG PO (02:33)
[2020-02-26] MEDS: metroNIDAZOLE 500 MG/100 ML BAG 100 MG IV (06:35)
[2020-02-26] MEDS: Lisinopril 20 MG Tablet PO (07:50)
[2020-02-26] MEDS: Metoprolol Tartrate 100 MG Tablet PO (07:50)
[2020-02-26] MEDS: Varenicline 1 MG Tablet PO (07:50)
[2020-02-26] MEDS: Enoxaparin 40 MG/0.4 ML Syringe SC (07:50)
[2020-02-26] MEDS: Aspirin 81 MG TAB.CHEW PO (07:51)
[2020-02-26 08:51] LABS: Anion Gap 6 (5-15); BUN 13 mg/dL (7-18); BUN/Creat Ratio 12.6 RATIO (10-20); Chloride 108 mmol/L (98-107); Creatinine, Serum 1.03 mg/dL (0.70-1.30); EST Glomerular Filtration Rate 83 mL/min (>60); Est Glom Filt Rate - Afr Amer 101 mL/min (>60); Glucose 88 mg/dL (74-106); Potassium 3.8 mmol/L (3.5-5.1); Sodium Level 138 mmol/L (136-145)
[2020-02-26 08:52] LABS: Absolute Lymphocyte Count 1.52 X10^3/uL (0.83-4.51); Absolute Neutrophil Count 6.7 X10^3/uL (2.0-7.7); Basophil# 0.05 X10^3/uL; Basophil% 0.5 % (0-1); Eosinophil# 0.28 X10^3/uL; Eosinophils% 2.9 % (0-5); Hemoglobin 14.5 g/dL (13.0-16.5); Lymphocyte # 1.52 X10^3/ul (4.0); Lymphocyte % 15.9 % (19-41); Mean Corpuscular Hgb 30.5 pg (27.0-32.0); Mean Corpuscular Volume 92.6 fL (80-94); Mean Platelet Vol. 10.3 fl (6.2-12.0); Monocyte# 0.93 X10^3/uL; Monocyte% 9.7 % (0-10); NRBC Flagged by Analyzer 0 % (0-5); Neutrophil # 6.74 X10^3/uL (2.7-7.7); Neutrophil % 70.6 % (47-70); Platelet Count 158 K/mm3 (150-450); RBC Distribution Width CV 13.1 % (11.6-14.6); RBC Distribution Width SD 44.5 fl (35.1-43.9); Red Blood Count 4.75 M/mm3 (4.6-6.2); White Blood Count 9.6 K/mm3 (4.4-11.0)
--- NOTE | 2020-02-26 09:01 | PCM.PN.SRG ---
Patient Problems: Active and Suspected Problems Colitis, acute (Acute) Peritonitis, acute generalized (Acute) Subjective: Patient denies any abdominal pain tolerating clears currently ordering a regular breakfast. - Physical Exam Vitals/I&O's: Vital Signs Temp Pulse Resp BP Pulse Ox 98.6 F 85 18 129/80 H 97 02/26/20 07:48 02/26/20 07:50 02/26/20 07:48 02/26/20 07:48 02/26/20 07:48 Oxygen Delivery Method Room Air Weight: 260 lb 4.8 oz Body Mass Index (BMI) 35.3 Intake and Output for Last 24 Hours 02/24/20 02/25/20 02/26/20 23:59 23:59 23:59 Intake Total 1027.5 / 1027.5 2172.5 / 2672.5 805.25 / 805.25 Output Total 1075 / 1950 1150 / 1150 Balance 1027.5 / 527.5 1097.5 / 722.5 -344.75 / -344.75 General: Alert, Oriented x3, Cooperative, No apparent distress HEENT: Atraumatic Lungs: Normal air movement Cardiovascular: Regular rate Abdomen: Soft, Non Tender, Non-Distended Laboratory Results 02/26/20 08:20: WBC 9.6, RBC 4.75, Hgb 14.5, Hct 44.0, MCV 92.6, MCH 30.5, MCHC 33.0, RDW Std Deviation 44.5 H, RDW Coeff of Shad 13.1, Plt Count 158, MPV 10.3, Immature Gran % (Auto) 0.400, Neut % (Auto) 70.6 H, Lymph % (Auto) 15.9 L, [place] % (Auto) 9.7, Eos % (Auto) 2.9, Baso % (Auto) 0.5, Absolute Neuts (auto) 6.7, Absolute Lymphs (auto) 1.52, Nucleated RBC % 0 02/26/20 08:20: Sodium 138, Potassium 3.8, Chloride 108 H, Carbon Dioxide 24.0, Anion Gap 6, BUN 13, Creatinine 1.03, Estim Creat Clear Calc 101.50, Est GFR (MDRD) Af Amer 101, Est GFR (MDRD) Non-Af 83, BUN/Creatinine Ratio 12.6, Glucose 88, Calcium 9.0 Current Medications Acetaminophen (Tylenol) 650 mg PO Q6H PRN PRN PRN Reason: Pain Score 1-10/10 Last Admin: 02/26/20 02:33 Dose: 650 mg Documented by: Aspirin (Aspirin, Baby) 81 mg PO DAILY@0800 [facility] Last Admin: 02/26/20 07:51 Dose: 81 mg Documented by: Baclofen (Lioresal) 10 mg PO DAILY PRN PRN PRN Reason: SPASMS Dextrose (D50w Syringe) 0 gm IV X1 PRN; Protocol PRN Reason: Hypoglycemia Enoxaparin Sodium (Lovenox) 40 mg SC DAILY [facility] Last Admin: 02/26/20 07:50 Dose: 40 mg Documented by: Epinephrine HCl () 0.3 mg IM X1 PRN PRN Reason: ALLERGIC RXN Gabapentin (Neurontin) 300 mg PO TID PRN PRN PRN Reason: NERVE PAIN Glucagon () 1 mg IM .X1 PRN PRN Reason: Hypoglycemia Cefepime HCl 1 gm/ Sodium (Chloride) 50 mls @ 100 mls/hr IV Q8 [facility] Last Infusion: 02/26/20 06:22 Dose: Infused Documented by: Metronidazole (Flagyl) 500 mg in 100 mls @ 100 mls/hr IV Q8 [facility] Last Infusion: 02/26/20 07:35 Dose: Infused Documented by: Sodium Chloride () 250 mls @ 15 mls/hr IV .[id number] PRN PRN Reason: Saline Flush Last Infusion: 02/26/20 07:35 Dose: 15 mls/hr Documented by: Sodium Chloride () 250 mls @ 15 mls/hr IV .[id number] PRN PRN Reason: Additional IVPB Infusion Lisinopril (Zestril) 20 mg PO DAILY [facility] Last Admin: 02/26/20 07:50 Dose: 20 mg Documented by: Metoprolol Tartrate (Lopressor (Beta Jan)) 100 mg PO DAILY [facility] Last Admin: 02/26/20 07:50 Dose: 100 mg Documented by: Morphine Sulfate () 4 mg IV Q3H PRN PRN PRN Reason: Pain Score 6-10/10 Last Admin: 02/24/20 23:51 Dose: 4 mg Documented by: Ondansetron HCl (Zofran) 4 mg IV Q8H PRN PRN PRN Reason: NAUSEA/VOMITING Pravastatin Sodium (Pravachol) 80 mg PO QHS [facility] Last Admin: 02/25/20 21:21 Dose: 80 mg Documented by: Sodium Chloride () 10 - 40 ml IV UD PRN PRN Reason: SALINE FLUSH Last Admin: 02/25/20 21:22 Dose: 20 ml Documented by: Varenicline (Chantix) 1 mg PO BID [facility] Last Admin: 02/26/20 07:50 Dose: 1 mg Documented by: Medical Necessity - Tobacco Use Smoking Status: Heavy Smoker (>10/day) Tobacco Use: Cigarettes Assessment/Plan All Active Problems History of hypercholesterolemia (Acute) Colitis, acute (Acute) Peritonitis, acute generalized (Acute) 44-year-old male with colitis at splenic flexure?pain resolved Patient is tolerating diet, patient be DC'd with Omnicef milligrams p.o. twice daily and Flagyl 500 mg p.o. 3 times daily for a total of 10 days Plan to have patient follow-up with Dr. Lisa for a colonoscopy as an outpatient Aarti Gonzalez M.D. Pager: [phone] [facility] [address] [place] [address], Outpatient [place], [address] [place] [address] Office: [phone] Inpatient E&M: [id number] [facility] Hosp L1
--- NOTE | 2020-02-26 14:04 | PCM.DC ---
- Discharge Diagnoses Current Active Problems: Current Active and Chronic Problems Colitis, acute (Acute) Peritonitis, acute generalized (Acute) You will use the following diet at home:: Cardiac Your food should be the consistency of: Regular Your liquids should be the consistency of: Regular/Thin Discharge Activity: Return to Normal Activity Weight Bearing Status: Weight bearing as tolerated Call your doctor if you observe: Fever of 101 or Higher, Shortness of breath, Dizziness, Uncontrolled pain, - - abdominal pain, bloody diarrhea Instructions: ED Gastroenteritis Noninfectious Allergies/Adverse Reactions: Allergies bee venom protein (honey bee) Allergy (Verified 02/24/20 13:35) Angioedema bupropion HCl [From Wellbutrin] Allergy (Verified 02/24/20 13:35) SEIZURES SEIZURES Medications to take at Discharge Aspirin [Aspirin, Baby] 81 mg PO DAILY@0800 06/18/13 Gabapentin [Neurontin] 300 mg PO TID PRN PRN 06/18/13 Lisinopril [Zestril] 20 mg PO DAILY 06/18/13 Metoprolol Tartrate [Lopressor (beta enedelia)] 100 mg PO DAILY 06/18/13 Pravastatin [Pravachol] 80 mg PO DAILY 06/18/13 Epi Pen (for allergic rxn) 0.3 mg IM X1 #1 syringe 04/19/14 Baclofen [Lioresal] 10 mg PO DAILY PRN PRN 02/24/20 Meloxicam [Mobic] 15 mg PO DAILY 02/24/20 Varenicline Tartrate [Chantix] 1 tab PO BID 02/24/20 Cefdinir [Omnicef [equiv]] 300 mg PO Q12H #14 cap 02/26/20 Metronidazole 500 mg PO Q8H #21 tab 02/26/20 The following prescriptions were given: Metronidazole 500 mg PO Q8H #21 tab Transmission Status: Received by [facility][id number] Cefdinir [Omnicef [equiv]] 300 mg PO Q12H #14 cap Transmission Status: Received by [facility][id number] Primary Care Physician: Dex Elizabeth DO [Primary Care Provider] - Please follow up with your Primary Care Physician in: 1-2 weeks Test Results: Test results from this visit will be discussed in further detail at your follow-up appointment, if applicable. Please Follow Up With: Aarti Gonzalez MD When: 1-2 weeks Proposed Discharge Date: 02/26/20
--- NOTE | 2020-02-26 14:13 | PCM.DC.SUM ---
Discharge Date and Diagnosis - Problem List Patient Problems: Active and Suspected Problems Colitis, acute (Acute) Peritonitis, acute generalized (Acute) Date of Admission: 02/24/20 Date of Discharge: 02/26/20 - Primary Discharge Diagnosis Acute Problems: Active Problems Colitis, acute (Acute) Peritonitis, acute generalized (Acute) - Secondary Discharge Diagnosis Chronic Problems: Chronic Problems Hypertension (Chronic) Hospital Course and Treatment Imaging Results: Diagnostic Data Abdomen/Pelvis CT 02/24/20 14:03 IMPRESSION: Findings in keeping with a colitis involving the region of the splenic flexure and descending colon down to the sigmoid colon with increased markings in the surrounding peritoneal fat as well as the anterior pararenal space on the left side. Electronically Signed: Tristin Ozuna, at 15:18 EDT , Service support , general surgery- Dr Lisa Operations: None Procedures: None Summary of Care Provided: The patient is a 44 year old M with a past medical history as outlined was admitted through the ED on 02/24/2020 with a complaint of abdominal pain which started on the day of admission. Pain was initially left-sided and became generalized, was sharp and cramping with no aggravating or relieving factors. Patient states the day before admission, he thought he was constipated so he took a laxative and had 3 episodes of diarrhea afterwards. He denies any fever or chills but admits to having a few episodes of vomiting. He is never had such abdominal pain before. Review of systems is otherwise negative. On admission in the ED, vitals showed temperature of 98.3 Fahrenheit with blood pressure of 140/98, pulse rate of 67 and respiratory rate of 18. He was saturating at 98% on room air. Chemistry was essentially unremarkable and CBC showed hemoglobin of 15.5 with WBC of 11.7. CT of the abdomen and pelvis showed colitis involving the region of the splenic flexure and descending colon down to the sigmoid colon with increased markings in the surrounding peritoneal fat as well as the anterior pararenal space on the left side. He has been admitted to be managed for acute colitis. He was kept n.p.o. and hydrated with IV fluids. He was started on IV cefepime and Flagyl. General surgery was consulted and plan was for conservative management. Patient's abdominal pain gradually improved he tolerated clear liquid diet. Diet was gradually advanced to soft diet then to regular diet which he tolerated. White cell count was not elevated throughout admission. Patient remained stable and colitis resolved with conservative management. He was discharged home on 02/26/2020 with a prescription for p.o. cefdinir and p.o. Flagyl for 2 weeks. He is to follow-up with his primary care doctor and is also to follow-up with general surgery in 1 to 2 weeks. Patient counseled that he would likely need outpatient colonoscopy and this will be arranged with general surgery. Patient seen and examined prior to discharge. He felt well and had no complaints. Review of symptoms otherwise negative. Labs and vitals reviewed. Home medication reviewed and reconciled. O/e: Vital Signs Temp Pulse Resp BP Pulse Ox 98.6 F 70 18 129/80 H 97 02/26/20 07:48 02/26/20 10:45 02/26/20 07:48 02/26/20 07:48 02/26/20 07:48 General: Alert, Oriented x3, Cooperative, No apparent distress HEENT: Atraumatic, PERRLA, EOMI, Normocephalic Oral: Dry Mucosa Neck: Supple, No JVD, Negative Carotid Bruits Lungs: Clear to auscultation, Normal air movement, No rhonchi, No wheeze Cardiovascular: Regular rate, Regular Rhythm, Normal S1, Normal S2, No murmurs Abdomen: Bowel Sounds Present, Soft, - - no tenderness on examination Extremities: No clubbing, No cyanosis, No edema, Capillary Refill Less than 3 Seconds Skin: No rashes, No breakdown Musculoskeletal: No Tenderness to Palpation of Joints or Extremities Lymphatic: No Cervical, Supraclavicular, or Inguinal Adenopathy Neurological: Cranial nerves II-XII grossly intact, Neuro grossly intact, Motor Exam 5/5 strength throughout Psych/Mental Status: Normal Affect, Appropriate, Alert and oriented to time, place, person, mood and affect Plan is for dc home today. Patient Problems: Active and Suspected Problems Colitis, acute (Acute) Peritonitis, acute generalized (Acute) - Physical Exam Vitals/I&O's: Vital Signs Temp Pulse Resp BP Pulse Ox 98.6 F 70 18 129/80 H 97 02/26/20 07:48 02/26/20 10:45 02/26/20 07:48 02/26/20 07:48 02/26/20 07:48 Oxygen Delivery Method Room Air Weight: 260 lb 4.8 oz Body Mass Index (BMI) 35.3 Intake and Output for Last 24 Hours 02/24/20 02/25/20 02/26/20 23:59 23:59 23:59 Intake Total 1027.5 / 1027.5 2172.5 / 2672.5 902.25 / 902.25 Output Total 1075 / 1950 1150 / 1150 Balance 1027.5 / 527.5 1097.5 / 722.5 -247.75 / -247.75 Laboratory Results 02/26/20 08:20: WBC 9.6, RBC 4.75, Hgb 14.5, Hct 44.0, MCV 92.6, MCH 30.5, MCHC 33.0, RDW Std Deviation 44.5 H, RDW Coeff of Shad 13.1, Plt Count 158, MPV 10.3, Immature Gran % (Auto) 0.400, Neut % (Auto) 70.6 H, Lymph % (Auto) 15.9 L, [place] % (Auto) 9.7, Eos % (Auto) 2.9, Baso % (Auto) 0.5, Absolute Neuts (auto) 6.7, Absolute Lymphs (auto) 1.52, Nucleated RBC % 0 02/26/20 08:20: Sodium 138, Potassium 3.8, Chloride 108 H, Carbon Dioxide 24.0, Anion Gap 6, BUN 13, Creatinine 1.03, Estim Creat Clear Calc 101.50, Est GFR (MDRD) Af Amer 101, Est GFR (MDRD) Non-Af 83, BUN/Creatinine Ratio 12.6, Glucose 88, Calcium 9.0 Current Medications Acetaminophen (Tylenol) 650 mg PO Q6H PRN PRN PRN Reason: Pain Score 1-10/10 Last Admin: 02/26/20 02:33 Dose: 650 mg Documented by: Aspirin (Aspirin, Baby) 81 mg PO DAILY@0800 KADEN Last Admin: 02/26/20 07:51 Dose: 81 mg Documented by: Baclofen (Lioresal) 10 mg PO DAILY PRN PRN PRN Reason: SPASMS Dextrose (D50w Syringe) 0 gm IV X1 PRN; Protocol PRN Reason: Hypoglycemia Enoxaparin Sodium (Lovenox) 40 mg SC DAILY [facility] Last Admin: 02/26/20 07:50 Dose: 40 mg Documented by: Epinephrine HCl () 0.3 mg IM X1 PRN PRN Reason: ALLERGIC RXN Gabapentin (Neurontin) 300 mg PO TID PRN PRN PRN Reason: NERVE PAIN Glucagon () 1 mg IM .X1 PRN PRN Reason: Hypoglycemia Cefepime HCl 1 gm/ Sodium (Chloride) 50 mls @ 100 mls/hr IV Q8 [facility] Last Infusion: 02/26/20 06:22 Dose: Infused Documented by: Metronidazole (Flagyl) 500 mg in 100 mls @ 100 mls/hr IV Q8 [facility] Last Infusion: 02/26/20 07:35 Dose: Infused Documented by: Sodium Chloride () 250 mls @ 15 mls/hr IV .[id number] PRN PRN Reason: Saline Flush Last Infusion: 02/26/20 14:03 Dose: Infused Documented by: Sodium Chloride () 250 mls @ 15 mls/hr IV .[id number] PRN PRN Reason: Additional IVPB Infusion Lisinopril (Zestril) 20 mg PO DAILY [facility] Last Admin: 02/26/20 07:50 Dose: 20 mg Documented by: Metoprolol Tartrate (Lopressor (Beta Jan)) 100 mg PO DAILY [facility] Last Admin: 02/26/20 07:50 Dose: 100 mg Documented by: Morphine Sulfate () 4 mg IV Q3H PRN PRN PRN Reason: Pain Score 6-10/10 Last Admin: 02/24/20 23:51 Dose: 4 mg Documented by: Ondansetron HCl (Zofran) 4 mg IV Q8H PRN PRN PRN Reason: NAUSEA/VOMITING Pravastatin Sodium (Pravachol) 80 mg PO QHS [facility] Last Admin: 02/25/20 21:21 Dose: 80 mg Documented by: Sodium Chloride () 10 - 40 ml IV UD PRN PRN Reason: SALINE FLUSH Last Admin: 02/25/20 21:22 Dose: 20 ml Documented by: Varenicline (Chantix) 1 mg PO BID [facility] Last Admin: 02/26/20 07:50 Dose: 1 mg Documented by: Discharge Diet: Low fat/ Low Cholesterol Discharge Activity: Return to Normal Activity Weight Bearing Status: Weight bearing as tolerated Call your doctor if you observe: Fever of 101 or Higher, Shortness of breath, Dizziness, Uncontrolled pain, - - abdominal pain, bloody diarrhea Home Medications: Medications to take at Discharge Aspirin [Aspirin, Baby] 81 mg PO DAILY@0800 06/18/13 Gabapentin [Neurontin] 300 mg PO TID PRN PRN 06/18/13 Lisinopril [Zestril] 20 mg PO DAILY 06/18/13 Metoprolol Tartrate [Lopressor (beta jan)] 100 mg PO DAILY 06/18/13 Pravastatin [Pravachol] 80 mg PO DAILY 06/18/13 Epi Pen (for allergic rxn) 0.3 mg IM X1 #1 syringe 04/19/14 Baclofen [Lioresal] 10 mg PO DAILY PRN PRN 02/24/20 Meloxicam [Mobic] 15 mg PO DAILY 02/24/20 Varenicline Tartrate [Chantix] 1 tab PO BID 02/24/20 Cefdinir [Omnicef [equiv]] 300 mg PO Q12H #14 cap 02/26/20 Metronidazole 500 mg PO Q8H #21 tab 02/26/20 Following Prescrptions Were Given to Patient: Metronidazole 500 mg PO Q8H #21 tab Transmission Status: Received by [id number] Cefdinir [Omnicef [equiv]] 300 mg PO Q12H #14 cap Transmission Status: Received by [id number] Primary Care Physician: Dex Elizabeth DO [Primary Care Provider] - Please follow up with your Primary Care Physician in: 1-2 weeks Please Follow Up With: Aarti Gonzalez MD When: 1-2 weeks Patient Instructions: ED Gastroenteritis Noninfectious Disposition: Home Minutes spent on discharge:: 40 Patient Condition:: Stable Medical Necessity - Tobacco Use Smoking Status: Heavy Smoker (>10/day) Tobacco Use: Cigarettes Meaningful Use Info Meaningful Use Diagnoses (Choose all that apply): None applicable Inpatient E&M: 68297 Disch Hosp
== END 2020-02-26 14:37 | disposition home or self-care (01) | DRG 391 ==
LOC: ED 16:43 → MS3 17:15
PROVIDERS: Admitting Provider Student in an Organized Health Care Education/Training Program; Emergency Provider Emergency Medicine; PCP Family Medicine; Visit Provider Student in an Organized Health Care Education/Training Program
DX: K52.9 Noninfective gastroenteritis and colitis, unspecified (principal); K65.0 Generalized (acute) peritonitis; I10 Essential (primary) hypertension; E78.00 Pure hypercholesterolemia, unspecified; E66.9 Obesity, unspecified; Z79.899 Other long term (current) drug therapy; F17.210 Nicotine dependence, cigarettes, uncomplicated; Z68.35 Body mass index [BMI] 35.0-35.9, adult; Z79.1 Long term (current) use of non-steroidal anti-inflammatories (NSAID)
CPT/HCPCS: 36415; 74177; 80048; 80053; 83605; 85025; 87040; 99284; J7030; J7040; J7050; Q9967; A4216; J2405

== ENCOUNTER → 2023-07-21 | Outpatient (CLI) | payer OTHER, SELFPAY ==
[2023-07-21 17:40] LABS: Absolute Lymphocyte Count 2.16 X10^3/uL (0.83-4.51); Absolute Neutrophil Count 3.9 X10^3/uL (2.0-7.7); Basophil# 0.09 X10^3/uL; Basophil% 1.3 % (0-1); Eosinophils% 5.6 % (0-5); Hematocrit 43.3 % (40-54); Lymphocyte # 2.16 X10^3/ul (0.83-4.51); Lymphocyte % 30.4 % (19-41); Mean Corp Hgb Conc 32.3 g/dL (32-36); Mean Corpuscular Hgb 30.4 pg (27.0-32.0); Mean Corpuscular Volume 94.1 fL (80-94); Mean Platelet Vol. 10.4 fl (6.2-12.0); Monocyte# 0.47 X10^3/uL; Monocyte% 6.6 % (0-10); NRBC Flagged by Analyzer 0 % (0-5); Neutrophil # 3.94 X10^3/uL (2.7-7.7); Neutrophil % 55.5 % (47-70); Platelet Count 237 K/mm3 (150-450); RBC Distribution Width CV 13.5 % (11.6-14.6); RBC Distribution Width SD 46.7 fl (35.1-43.9); White Blood Count 7.1 K/mm3 (4.4-11.0)
[2023-07-21 17:55] LABS: Hemoglobin A1c 5.2 % (3.8-5.6)
[2023-07-21 18:13] LABS: AST(SGOT) 14 U/L (15-37); Alanine Aminotransfer ALT/SGPT 22 U/L (16-61); Albumin, Serum 3.5 g/dL (3.2-5.0); Alkaline Phosphatase 49 U/L (45-117); Anion Gap 5 (5-15); BUN 13 mg/dL (7-18); BUN/Creat Ratio 9.2 RATIO (10-20); Chloride 105 mmol/L (98-107); Cholesterol 208 mg/dL (200); Creatinine, Serum 1.42 mg/dL (0.70-1.30); EST Glomerular Filtration Rate 57 mL/min (>60); Est Glom Filt Rate - Afr Amer 69 mL/min (>60); Globulin 3.5 g/dL (2.2-4.2); Glucose 91 mg/dL (74-106); High Density Lipoprotein 34 mg/dL; Potassium 3.9 mmol/L (3.5-5.1); Sodium Level 138 mmol/L (136-145); Triglycerides 186 mg/dL; Very Low Density Lipoprotein 37 mg/dL (5-40)
== END | disposition home or self-care (01) ==
LOC: BFHLAB 15:43
PROVIDERS: PCP Family Medicine; Referring Provider Family Medicine; Visit Provider Family Medicine
DX: Z00.00 Encounter for general adult medical examination without abnormal findings (principal)
CPT/HCPCS: 36415; 80053; 80061; 83036; 85025

== ENCOUNTER 2023-08-17 17:57 | Observation (INO) | payer OTHER, SELFPAY ==
[2023-08-17 18:03] VITALS: BP 139/79; PULSE 81; RESP 18; TEMP 36.3; O2SAT 94; BMI 35.2
--- NOTE | 2023-08-17 18:11 | EKG12_ITS ---
Test Reason : DYSRHYTHMIA Blood Pressure : / mmHG Vent. Rate : 075 BPM Atrial Rate : 075 BPM P-R Int : 138 ms QRS Dur : 090 ms QT Int : 400 ms P-R-T Axes : 043 032 036 degrees QTc Int : 446 ms Normal sinus rhythm Normal ECG Confirmed by ARASH MENDES, JEROMY ([id number]), sound editor TOÑA MANUEL ([id number]) on 08/18/2023 11:00:38 AM Referred By: Chau Shannon Confirmed By:JEROMY ANTOINE MD
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
--- NOTE | 2023-08-17 18:22 | ED.RN ---
PRESENT. STATES FULL BODY CONVULSING FOR WHAT SEEMED LIKE 5 MINUTES. LIP TURNED BLUE. hX REPORTS: PT HAS HX OF A SEIZURE D/T WELLBUTRIN. HE DID HAVE GERD MEDICATION CHANGE RECENTLY FROM OTC TO OMEPRAZOLE RX. A FEW WEEKS AGO
[2023-08-17 18:33] LABS: Absolute Neutrophil Count 4.3 X10^3/uL (2.0-7.7); Basophil# 0.08 X10^3/uL; Basophil% 1.1 % (0-1); Eosinophil# 0.47 X10^3/uL; Eosinophils% 6.3 % (0-5); Hematocrit 43.2 % (40-54); Hemoglobin 14.3 g/dL (13.0-16.5); Lymphocyte % 30.7 % (19-41); Mean Corp Hgb Conc 33.1 g/dL (32-36); Mean Corpuscular Hgb 30.5 pg (27.0-32.0); Mean Corpuscular Volume 92.1 fL (80-94); Mean Platelet Vol. 10.4 fl (6.2-12.0); Monocyte# 0.25 X10^3/uL; Monocyte% 3.3 % (0-10); NRBC Flagged by Analyzer 0 % (0-5); Neutrophil # 4.34 X10^3/uL (2.7-7.7); Neutrophil % 57.9 % (47-70); Platelet Count 220 K/mm3 (150-450); RBC Distribution Width CV 13.2 % (11.6-14.6); Red Blood Count 4.69 M/mm3 (4.6-6.2); White Blood Count 7.5 K/mm3 (4.4-11.0)
[2023-08-17 18:35] VITALS: BP 142/99; PULSE 69; RESP 14; O2SAT 96
[2023-08-17] MEDS: 0.9% Normal Saline (1000mL) 1,000 ML 1000 ML IV (18:44)
--- NOTE | 2023-08-17 18:50 | ED.RN ---
PT HAS GAPS IN HIS DAY. STATE HE DOESNT REMEMBER WORKING TODAY REPORTS HE WORKED 8 HOURS AND THEN CAME HOME AND TOOK A NAP. PT STATES THAT HE DOES REMEMBER LAYING DOWN AND THAT IT WAS REALLY HARD TO FALL ASLEEP.
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
[2023-08-17 18:55] LABS: AST(SGOT) 15 U/L (15-37); Alanine Aminotransfer ALT/SGPT 21 U/L (16-61); Albumin, Serum 3.5 g/dL (3.2-5.0); Alkaline Phosphatase 48 U/L (45-117); Anion Gap 4 (5-15); BUN 15 mg/dL (7-18); BUN/Creat Ratio 9.9 RATIO (10-20); Chloride 105 mmol/L (98-107); Creatinine, Serum 1.51 mg/dL (0.70-1.30); EST Glomerular Filtration Rate 53 mL/min (>60); Est Glom Filt Rate - Afr Amer 64 mL/min (>60); Estimated Creatinine Clearance 70.31 ml/min; Globulin 3.5 g/dL (2.2-4.2); Glucose 102 mg/dL (74-106); Prolactin 21.7 ng/mL; Sodium Level 136 mmol/L (136-145)
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
[2023-08-17 19:52] VITALS: BP 146/99; PULSE 63; RESP 14; O2SAT 98
[2023-08-17] MEDS: 0.9% Normal Saline (1000mL) 1,000 ML 999 ML IV (20:03)
[2023-08-17 20:04] LABS: Amphetamine Urine VISTA NEGATIVE (<1000 ng/mL); Barbiturate Urine VISTA NEGATIVE (< 200 ng/mL); Benzodiazepine Urine VISTA NEGATIVE (< 200 ng/mL); Cocaine Urine VISTA NEGATIVE (< 300 ng/mL); Ecstacy Urine VISTA NEGATIVE (< 500 ng/mL); Methadone Urine VISTA NEGATIVE (< 300 ng/mL); PCP Urine VISTA NEGATIVE (< 25 ng/mL); THC Urine VISTA NEGATIVE (< 50 ng/mL); Vista UDS pH Range 6
[2023-08-17 20:14] VITALS: BMI 36.8
[2023-08-17 20:33] LABS: Alcohol, Blood (Medical)-Serum < 3.0 mg/dL
[2023-08-17 20:40] VITALS: BP 139/90; PULSE 63; RESP 18; TEMP 36.6; O2SAT 98
[2023-08-17] MEDS: Acetaminophen 325 MG Tablet 650 MG PO (20:57)
[2023-08-17] MEDS: Pravastatin 80 MG Tablet PO (21:55)
[2023-08-17] MEDS: Baclofen 10 MG Tablet PO (21:55)
[2023-08-17 22:28] LABS: Reflex Lactate? Y
[2023-08-18] VITALS (8 sets, daily range): BP systolic 112–153; BP diastolic 77–111; PULSE 60–88; RESP 14–18; TEMP 36.7–36.9; O2SAT 95–98
[2023-08-18 07:19] LABS: Hematocrit 42.7 % (40-54); Hemoglobin 13.9 g/dL (13.0-16.5); Mean Corp Hgb Conc 32.6 g/dL (32-36); Mean Corpuscular Hgb 30.5 pg (27.0-32.0); Mean Corpuscular Volume 93.6 fL (80-94); Mean Platelet Vol. 10.4 fl (6.2-12.0); Platelet Count 229 K/mm3 (150-450); RBC Distribution Width CV 13.2 % (11.6-14.6); RBC Distribution Width SD 45.3 fl (35.1-43.9); Red Blood Count 4.56 M/mm3 (4.6-6.2)
[2023-08-18 07:55] LABS: Anion Gap 4 (5-15); BUN 14 mg/dL (7-18); BUN/Creat Ratio 9.2 RATIO (10-20); Calcium,Total 8.7 mg/dL (8.5-10.1); Chloride 113 mmol/L (98-107); Creatinine, Serum 1.53 mg/dL (0.70-1.30); EST Glomerular Filtration Rate 52 mL/min (>60); Est Glom Filt Rate - Afr Amer 63 mL/min (>60); Estimated Creatinine Clearance 65.51 ml/min; Glucose 138 mg/dL (74-106); Potassium 3.7 mmol/L (3.5-5.1); Sodium Level 142 mmol/L (136-145)
[2023-08-18] MEDS: Aspirin 81 MG TAB.CHEW PO (08:40)
[2023-08-18] MEDS: Enoxaparin 40 MG/0.4 ML Syringe SC (10:04)
[2023-08-18] MEDS: amLODIPine 5 MG Tablet PO (10:04)
[2023-08-18] MEDS: Pantoprazole Sodium 40 MG Tablet PO (10:04)
[2023-08-18] MEDS: Metoprolol Tartrate 100 MG Tablet PO (10:04)
[2023-08-18] MEDS: Citalopram 20 MG Tablet PO (10:04)
--- NOTE | 2023-08-18 10:35 | MRI_ITS ---
STUDY: MRI BRAIN WITH AND WITHOUT CONTRAST REASON FOR EXAM: Male, 48 years old. seizure TECHNIQUE: Standardized multiplanar fat and water weighted pulse sequences were obtained. IV 25cc clariscan was administered for the contrast portion of the examination. COMPARISON: CT of the brain August 17, 2023 FINDINGS: Normal size of the ventricles and extra-axial spaces for the patient''s age. There is encephalomalacia and gliosis in the frontal lobes bilaterally with mild hemosiderin deposition more pronounced on the left likely due to old posttraumatic changes. Normal bilateral basal ganglia. Normal thalami. There is no extra-axial fluid accumulation. Normal flow voids within the major intracranial circulation suggesting patency by spin echo criteria. Normal venous enhancement. There is no enhancing intra-axial or extra-axial abnormality. Normal sella turcica, pituitary gland, infundibular stalk, optic chiasm and hypothalamus. Normal tectal plate and pineal gland. Normal midbrain, bennett and medulla. Normal cerebellum. Normal basal cisterns. Normal bilateral temporal bones. Normal bilateral internal auditory canals. No demonstrated orbital abnormality, within the constraints of a routine brain study. There is mucosal thickening within the maxillary sinuses bilaterally more pronounced on the right as well as callosal thickening of the ethmoid air cells and mucosal thickening as well as fluid within the sphenoid sinus. Normal calvarium and skull base. Normal visualized soft tissue structures. Normal visualized upper cervical spine. No enhancing lesions following contrast demonstration MRI/Brain W/WO Contrast IMPRESSION: 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 Prior hemorrhagic infarct may create similar appearance however clinical correlation is recommended in this regard Electronically Signed: Jamaal Rogers MD at 20:41 EST ,
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
--- NOTE | 2023-08-18 11:32 | STROKE.CONS ---
Assessment and Plan: Stroke Assessment/Plan JENNIFER CAMILO is a 48 M with a history of who presents for evaluation of Neurological examination shows . Neuroimaging shows . [Quick text reminder: .OSUtnk/.OSUnontnk] HPI Consult Data Date of Consult: 08/18/23 HPI Narrative HPI Narrative: JENNIFER CAMILO, is a 48 M who presents [facility] Medical History Anxiety Chronic pain Hypertension Myocardial infarct Seizures Sleep apnea Smoker Home Medications aspirin 81 mg chewable tablet 81 mg PO DAILY@0800 06/18/13 [History Last Taken 02/24/20] gabapentin 300 mg capsule 300 mg PO TID PRN PRN NERVE PAIN 06/18/13 [History Last Taken 02/23/20] lisinopril 20 mg tablet 20 mg PO DAILY 06/18/13 [History Last Taken 02/24/20] metoprolol tartrate 50 mg tablet 100 mg PO DAILY Check with primary doctor 06/18/13 [History Last Taken 02/24/20] pravastatin 80 mg tablet 80 mg PO DAILY 06/18/13 [History Last Taken 02/24/20] epinephrine 0.3 mg/0.3 mL injection, auto-injector 0.3 mg (0.3 mL) IM X1 ##1 04/19/14 [Rx Last Taken Unknown] baclofen 10 mg tablet 10 mg PO DAILY PRN PRN Spasms 02/24/20 [History Last Taken Unknown] amlodipine 5 mg tablet 5 mg PO DAILY blood pressure 08/17/23 [History Last Taken 08/17/23] citalopram 20 mg tablet 20 mg PO DAILY depression 08/17/23 [History Last Taken 08/17/23] omeprazole 40 mg capsule,delayed release 40 mg PO DAILY 08/17/23 [History Last Taken Unknown] tadalafil 5 mg tablet 5 mg PO DAILY ED 08/17/23 [History Last Taken Unknown] Allergy/AdvReac Type Severity Reaction Status Date / Time bee venom protein (honey bee) Allergy Angioedema Verified 08/17/23 18:03 bupropion HCl Allergy SEIZURES Verified 08/17/23 18:03 [From Wellbutrin] Social History Smoking Status: Current every day smoker tobacco type: cigarettes Vital Signs Vital Signs Vital Signs: 08/17/23 18:03 08/17/23 18:35 08/17/23 19:52 Temperature 97.3 F L Temperature Source Temporal Pulse Rate 81 69 63 Pulse Strength Respiratory Rate 18 14 14 Respiratory Effort Respiratory Depth Respiratory Pattern Blood Pressure 139/79 H 142/99 H 146/99 H Blood Pressure [BP] Blood Pressure Mean 99 113 114 Blood Pressure Mean [BP] Blood Pressure Source Blood Pressure Source [BP] Blood Pressure Position Blood Pressure Position [BP] Blood Pressure Location Blood Pressure Location [BP] Pulse Ox 94 96 98 Oxygen Delivery Method Room Air Room Air 08/17/23 20:40 08/17/23 20:45 08/17/23 22:00 Temperature 97.9 F Temperature Source Oral Pulse Rate 63 Pulse Strength Normal (2+) Respiratory Rate 18 Respiratory Effort Normal Non-Labored Respiratory Depth Normal Respiratory Pattern Normal Blood Pressure 139/90 H Blood Pressure [BP] Blood Pressure Mean 106 Blood Pressure Mean [BP] Blood Pressure Source Blood Pressure Source [BP] Blood Pressure Position Blood Pressure Position [BP] Blood Pressure Location Blood Pressure Location [BP] Pulse Ox 98 Oxygen Delivery Method Room Air Room Air 08/18/23 02:40 08/18/23 02:30 08/18/23 07:30 Temperature 98.3 F Temperature Source Oral Pulse Rate 75 Pulse Strength Normal (2+) Respiratory Rate 18 Respiratory Effort Normal Non-Labored Respiratory Depth Normal Respiratory Pattern Normal Blood Pressure 125/77 H Blood Pressure [BP] Blood Pressure Mean 93 Blood Pressure Mean [BP] Blood Pressure Source Monitor Blood Pressure Source [BP] Blood Pressure Position Semi-Fowlers Blood Pressure Position [BP] Blood Pressure Location Blood Pressure Location [BP] Pulse Ox 97 Oxygen Delivery Method Room Air Room Air 08/18/23 08:15 08/18/23 08:46 08/18/23 10:04 Temperature 98.0 F Temperature Source Oral Pulse Rate 82 82 Pulse Strength Respiratory Rate 18 Respiratory Effort Respiratory Depth Respiratory Pattern Blood Pressure 146/111 H Blood Pressure [BP] Blood Pressure Mean 122 Blood Pressure Mean [BP] Blood Pressure Source Monitor Blood Pressure Source [BP] Blood Pressure Position Sitting Blood Pressure Position [BP] Blood Pressure Location Right Arm Blood Pressure Location [BP] Pulse Ox 95 97 Oxygen Delivery Method Room Air Room Air 08/18/23 08:40 08/18/23 10:20 Temperature 98.5 F 98.0 F Temperature Source Oral Oral Pulse Rate 88 76 Pulse Strength Respiratory Rate 14 18 Respiratory Effort Respiratory Depth Respiratory Pattern Blood Pressure 146/100 H Blood Pressure [BP] 153/86 H Blood Pressure Mean 115 Blood Pressure Mean [BP] 108 Blood Pressure Source Monitor Blood Pressure Source [BP] Monitor Blood Pressure Position Semi-Fowlers Blood Pressure Position [BP] Semi-Fowlers Blood Pressure Location Left Arm Blood Pressure Location [BP] Left Forearm Pulse Ox 96 97 Oxygen Delivery Method Room Air Room Air Weight Weight: 123 kg Body Mass Index (BMI) 36.8 EEG Results Procedure Details EEG Procedure Details: JENNIFER CAMILO is a 48 year old M with a past medical history of , who presents for evaluation of Electroencephalogram on DATE at TIME Lab / Micro Data 08/18/23 06:20 08/18/23 06:20 Labs: Laboratory Results - last 24 hr 08/17/23 18:15: WBC 7.5, RBC 4.69, Hgb 14.3, Hct 43.2, MCV 92.1, MCH 30.5, MCHC 33.1, RDW Std Deviation 45.0 H, RDW Coeff of Shad 13.2, Plt Count 220, MPV 10.4, Immature Gran % (Auto) 0.700, Neut % (Auto) 57.9, Lymph % (Auto) 30.7, [place] % (Auto) 3.3, Eos % (Auto) 6.3 H, Baso % (Auto) 1.1 H, Absolute Neuts (auto) 4.3, Absolute Lymphs (auto) 2.30, Nucleated RBC % 0, Sodium 136, Potassium 4.0, Chloride 105, Carbon Dioxide 27.0, Anion Gap 4 L, BUN 15, Creatinine 1.51 H, Estim Creat Clear Calc 70.31, Est GFR (MDRD) Af Amer 64, Est GFR (MDRD) Non-Af 53 L, BUN/Creatinine Ratio 9.9 L, Glucose 102, Lactic Acid 3.0 H*, Calcium 9.0, Total Bilirubin 0.30, AST 15, ALT 21, Alkaline Phosphatase 48, Total Protein 7.0, Albumin 3.5, Globulin 3.5, Albumin/Globulin Ratio 1.0, Prolactin 21.7, Ethyl Alcohol < 3.0 08/17/23 19:40: Urine Opiates Screen NEGATIVE, Urine Methadone Screen NEGATIVE, Ur Barbiturates Screen NEGATIVE, Ur Phencyclidine Scrn NEGATIVE, Ur Amphetamines Screen NEGATIVE, MDMA (Ecstasy) Screen NEGATIVE, U Benzodiazepines Scrn NEGATIVE, Urine Cocaine Screen NEGATIVE, U Cannabinoids Screen NEGATIVE, Ur Drug Screen Comment 08/17/23 22:45: Lactic Acid 1.0 08/18/23 06:20: WBC 8.0, RBC 4.56 L, Hgb 13.9, Hct 42.7, MCV 93.6, MCH 30.5, MCHC 32.6, RDW Std Deviation 45.3 H, RDW Coeff of Shad 13.2, Plt Count 229, MPV 10.4, Sodium 142, Potassium 3.7, Chloride 113 H, Carbon Dioxide 25.0, Anion Gap 4 L, BUN 14, Creatinine 1.53 H, Estim Creat Clear Calc 65.51, Est GFR (MDRD) Af Amer 63, Est GFR (MDRD) Non-Af 52 L, BUN/Creatinine Ratio 9.2 L, Glucose 138 H, Calcium 8.7 Imagaing Radiology Impression Brain CT 08/17/23 18:11 IMPRESSION: 1. No acute intracranial hemorrhage. 2. Suspect posttraumatic changes to the frontal bones with encephalomalacia of the frontal lobes. 3. Acute on chronic left sphenoid sinusitis. Electronically Signed: Seun Richardson MD at 19:12 EST , Active Medications Active Medications Active Medications: Current Medications Generic Name Dose Route Start Last Admin Trade Name Freq PRN Reason Stop Dose Admin Acetaminophen 650 mg 08/17/23 20:28 08/17/23 20:57 Acetaminophen 325 Mg Tablet PO 650 mg Q6H PRN PRN Administration Pain 1-10 Or Fever>100.7 Amlodipine Besylate 5 mg 08/18/23 10:00 08/18/23 10:04 Amlodipine 5 Mg Tablet PO 5 mg DAILY KADEN Administration Protocol Aspirin 81 mg 08/18/23 08:00 08/18/23 08:40 Aspirin 81 Mg Tab.Chew PO 81 mg DAILY@0800 KADEN Administration Citalopram Hydrobromide 20 mg 08/18/23 10:00 08/18/23 10:04 Citalopram 20 Mg Tablet PO 20 mg DAILY KADEN Administration Enoxaparin Sodium 40 mg 08/18/23 10:00 08/18/23 10:04 Enoxaparin 40 Mg/0.4 Ml Syringe SC 40 mg DAILY KADEN Administration Sodium Chloride 250 mls @ 15 mls/hr 08/17/23 20:19 IV .[id number] PRN Additional IVPB Infusion Sodium Chloride 250 mls @ 15 mls/hr 08/17/23 20:19 IV .[id number] PRN Saline Flush Levetiracetam 500 mg 08/18/23 11:00 Levetiracetam 500 Mg Tablet PO BID KADEN Melatonin 3 mg 08/17/23 20:28 Melatonin 3 Mg Tablet PO QHS PRN PRN INSOMNIA Metoprolol Tartrate 100 mg 08/18/23 10:00 08/18/23 10:04 Metoprolol Tartrate 100 Mg Tablet PO 100 mg DAILY KADEN Administration Protocol Ondansetron HCl 4 mg 08/17/23 20:28 Ondansetron 4 Mg/2 Ml Vial IV Q8H PRN PRN NAUSEA/VOMITING Pantoprazole Sodium 40 mg 08/18/23 10:00 08/18/23 10:04 Pantoprazole Sodium 40 Mg Tablet PO 40 mg DAILY KADEN Administration Pravastatin Sodium 80 mg 08/17/23 22:00 08/17/23 21:55 Pravastatin 80 Mg Tablet PO 80 mg QHS KADEN Administration Sodium Chloride 10 - 40 ml 08/17/23 20:19 0.9% Saline Lock 10 Ml Syringe IV UD PRN SALINE FLUSH
[2023-08-18] MEDS: levETIRAcetam 500 MG Tablet PO ×2 (13:00→20:54)
[2023-08-18] MEDS: Baclofen 10 MG Tablet PO (15:11)
--- NOTE | 2023-08-18 16:30 | NEURO.CONS ---
Assessment and Plan: Neuro Assessment/Plan JENNIFER CAMILO is a 48 M with a past medical history of , being evaluated by Teleneurology for Diagnosis: Plan: - Anti-platelet medication: Aspirin 81 mg daily - Occupational/ Physical therapy consults - NPO until swallow evaluation. IVF until able to take po - DVT prophylaxis with SCDs and heparin SQ - Vascular risk factor modification. The following are the recommended guidelines: LDL Goal < 70 Smoking Cessation Diabetes Management payroll administrative assistant blood pressure control should achieve <130/80 mmHg. BP management should aim to achieve intermediate contorl in a reasonable amount of time, taking into consideration the individual patient's requirements and characteristics. Weight Management: Goal for BMI is 18.5 -24.9 kg/m2 Alcohol: No more than 2 drinks/day for men or 1 drink/day for non- women - Promote lifestyle modification: weight control, physical activity, moderation of alcohol intake, moderate sodium intake. - Transfer to [facility] for the following reasons: Followup with PCP in 1-2 weeks, and in Neurology clinic in 6-12 weeks Transfer to [facility] for the following reasons: I personally attended this patient and spent a total time of minutes evaluating this patient including clinical assessment, review of chart, medical history imaging, and determining appropriate treatment and workup. HPI Consult Data Date of Consult: 08/19/23 HPI Narrative HPI Narrative: JENNIFER CAMILO, is a 48 M who presents [facility] Medical History Anxiety Chronic pain Hypertension Myocardial infarct Seizures Sleep apnea Smoker Home Medications aspirin 81 mg chewable tablet 81 mg PO DAILY@0800 heart health 06/18/13 [History Last Taken 02/24/20] gabapentin 300 mg capsule 300 mg PO TID PRN PRN NERVE PAIN 06/18/13 [History Last Taken 02/23/20] lisinopril 20 mg tablet 20 mg PO DAILY blood pressure 06/18/13 [History Last Taken 02/24/20] metoprolol tartrate 50 mg tablet 100 mg PO DAILY blood pressure 06/18/13 [History Last Taken 02/24/20] pravastatin 80 mg tablet 80 mg PO DAILY 06/18/13 [History Last Taken 02/24/20] epinephrine 0.3 mg/0.3 mL injection, auto-injector 0.3 mg (0.3 mL) IM X1 allergies ##1 04/19/14 [Rx Last Taken Unknown] baclofen 10 mg tablet 10 mg PO DAILY PRN PRN Spasms 02/24/20 [History Last Taken Unknown] amlodipine 5 mg tablet 5 mg PO DAILY blood pressure 08/17/23 [History Last Taken 08/17/23] citalopram 20 mg tablet 20 mg PO DAILY depression 08/17/23 [History Last Taken 08/17/23] omeprazole 40 mg capsule,delayed release 40 mg PO DAILY reflux 08/17/23 [History Last Taken Unknown] tadalafil 5 mg tablet 5 mg PO DAILY ED 08/17/23 [History Last Taken Unknown] levetiracetam 500 mg tablet 500 mg PO BID #60 tabs 08/19/23 [Rx Last Taken Unknown] Allergy/AdvReac Type Severity Reaction Status Date / Time bee venom protein (honey bee) Allergy Angioedema Verified 08/17/23 18:03 bupropion HCl Allergy SEIZURES Verified 08/17/23 18:03 [From Wellbutrin] Social History Smoking Status: Current every day smoker tobacco type: cigarettes Vital Signs Vital Signs Vital Signs: 08/17/23 18:03 08/17/23 18:35 08/17/23 19:52 Temperature 97.3 F L Temperature Source Temporal Pulse Rate 81 69 63 Pulse Strength Respiratory Rate 18 14 14 Respiratory Effort Respiratory Depth Respiratory Pattern Blood Pressure 139/79 H 142/99 H 146/99 H Blood Pressure [BP] Blood Pressure Mean 99 113 114 Blood Pressure Mean [BP] Blood Pressure Source Blood Pressure Source [BP] Blood Pressure Position Blood Pressure Position [BP] Blood Pressure Location Blood Pressure Location [BP] Pulse Ox 94 96 98 Oxygen Delivery Method Room Air Room Air 08/17/23 20:40 08/17/23 20:45 08/17/23 22:00 Temperature 97.9 F Temperature Source Oral Pulse Rate 63 Pulse Strength Normal (2+) Respiratory Rate 18 Respiratory Effort Normal Non-Labored Respiratory Depth Normal Respiratory Pattern Normal Blood Pressure 139/90 H Blood Pressure [BP] Blood Pressure Mean 106 Blood Pressure Mean [BP] Blood Pressure Source Blood Pressure Source [BP] Blood Pressure Position Blood Pressure Position [BP] Blood Pressure Location Blood Pressure Location [BP] Pulse Ox 98 Oxygen Delivery Method Room Air Room Air 08/18/23 02:40 08/18/23 02:30 08/18/23 07:30 Temperature 98.3 F Temperature Source Oral Pulse Rate 75 Pulse Strength Normal (2+) Respiratory Rate 18 Respiratory Effort Normal Non-Labored Respiratory Depth Normal Respiratory Pattern Normal Blood Pressure 125/77 H Blood Pressure [BP] Blood Pressure Mean 93 Blood Pressure Mean [BP] Blood Pressure Source Monitor Blood Pressure Source [BP] Blood Pressure Position Semi-Fowlers Blood Pressure Position [BP] Blood Pressure Location Blood Pressure Location [BP] Pulse Ox 97 Oxygen Delivery Method Room Air Room Air 08/18/23 08:15 08/18/23 08:46 08/18/23 10:04 Temperature 98.0 F Temperature Source Oral Pulse Rate 82 82 Pulse Strength Respiratory Rate 18 Respiratory Effort Respiratory Depth Respiratory Pattern Blood Pressure 146/111 H Blood Pressure [BP] Blood Pressure Mean 122 Blood Pressure Mean [BP] Blood Pressure Source Monitor Blood Pressure Source [BP] Blood Pressure Position Sitting Blood Pressure Position [BP] Blood Pressure Location Right Arm Blood Pressure Location [BP] Pulse Ox 95 97 Oxygen Delivery Method Room Air Room Air 08/18/23 08:40 08/18/23 10:20 08/18/23 02:30 Temperature 98.5 F 98.0 F 98.0 F Temperature Source Oral Oral Oral Pulse Rate 88 76 60 Pulse Strength Respiratory Rate 14 18 18 Respiratory Effort Respiratory Depth Respiratory Pattern Blood Pressure 146/100 H 134/96 H Blood Pressure [BP] 153/86 H Blood Pressure Mean 115 108 Blood Pressure Mean [BP] 108 Blood Pressure Source Monitor Monitor Blood Pressure Source [BP] Monitor Blood Pressure Position Semi-Fowlers Sitting Blood Pressure Position [BP] Semi-Fowlers Blood Pressure Location Left Arm Left Forearm Blood Pressure Location [BP] Left Forearm Pulse Ox 96 97 98 Oxygen Delivery Method Room Air Room Air Room Air Weight Weight: 123 kg Body Mass Index (BMI) 36.8 EEG Results Procedure Details EEG Procedure Details: JENNIFER CAMILO is a 48 year old M with a past medical history of , who presents for evaluation of Electroencephalogram on DATE at TIME Physical Exam Neuro Cranial Nerves: CN II (optic) Lab / Micro Data 08/18/23 06:20 08/18/23 06:20 Labs: Laboratory Results - last 24 hr 08/17/23 18:15: WBC 7.5, RBC 4.69, Hgb 14.3, Hct 43.2, MCV 92.1, MCH 30.5, MCHC 33.1, RDW Std Deviation 45.0 H, RDW Coeff of Shad 13.2, Plt Count 220, MPV 10.4, Immature Gran % (Auto) 0.700, Neut % (Auto) 57.9, Lymph % (Auto) 30.7, Simpson % (Auto) 3.3, Eos % (Auto) 6.3 H, Baso % (Auto) 1.1 H, Absolute Neuts (auto) 4.3, Absolute Lymphs (auto) 2.30, Nucleated RBC % 0, Sodium 136, Potassium 4.0, Chloride 105, Carbon Dioxide 27.0, Anion Gap 4 L, BUN 15, Creatinine 1.51 H, Estim Creat Clear Calc 70.31, Est GFR (MDRD) Af Amer 64, Est GFR (MDRD) Non-Af 53 L, BUN/Creatinine Ratio 9.9 L, Glucose 102, Lactic Acid 3.0 H*, Calcium 9.0, Total Bilirubin 0.30, AST 15, ALT 21, Alkaline Phosphatase 48, Total Protein 7.0, Albumin 3.5, Globulin 3.5, Albumin/Globulin Ratio 1.0, Prolactin 21.7, Ethyl Alcohol < 3.0 08/17/23 19:40: Urine Opiates Screen NEGATIVE, Urine Methadone Screen NEGATIVE, Ur Barbiturates Screen NEGATIVE, Ur Phencyclidine Scrn NEGATIVE, Ur Amphetamines Screen NEGATIVE, MDMA (Ecstasy) Screen NEGATIVE, U Benzodiazepines Scrn NEGATIVE, Urine Cocaine Screen NEGATIVE, U Cannabinoids Screen NEGATIVE, Ur Drug Screen Comment 08/17/23 22:45: Lactic Acid 1.0 08/18/23 06:20: WBC 8.0, RBC 4.56 L, Hgb 13.9, Hct 42.7, MCV 93.6, MCH 30.5, MCHC 32.6, RDW Std Deviation 45.3 H, RDW Coeff of Shad 13.2, Plt Count 229, MPV 10.4, Sodium 142, Potassium 3.7, Chloride 113 H, Carbon Dioxide 25.0, Anion Gap 4 L, BUN 14, Creatinine 1.53 H, Estim Creat Clear Calc 65.51, Est GFR (MDRD) Af Amer 63, Est GFR (MDRD) Non-Af 52 L, BUN/Creatinine Ratio 9.2 L, Glucose 138 H, Calcium 8.7 Imagaing Rad[address] Impression Brain CT 08/17/23 18:11 IMPRESSION: 1. No acute intracranial hemorrhage. 2. Suspect posttraumatic changes to the frontal bones with encephalomalacia of the frontal lobes. 3. Acute on chronic left sphenoid sinusitis. Electronically Signed: Seun Richardson MD at 19:12 EST , Active Medications Active Medications Active Medications: Current Medications Generic Name Dose Route Start Last Admin Trade Name Freq PRN Reason Stop Dose Admin Acetaminophen 650 mg 08/17/23 20:28 08/17/23 20:57 Acetaminophen 325 Mg Tablet PO 650 mg Q6H PRN PRN Administration Pain 1-10 Or Fever>100.7 Amlodipine Besylate 5 mg 08/18/23 10:00 08/18/23 10:04 Amlodipine 5 Mg Tablet PO 5 mg DAILY KADEN Administration Protocol Aspirin 81 mg 08/18/23 08:00 08/18/23 08:40 Aspirin 81 Mg Tab.Chew PO 81 mg DAILY@0800 KADEN Administration Baclofen 10 mg 08/18/23 14:56 08/18/23 15:11 Baclofen 10 Mg Tablet PO 10 mg DAILY PRN Administration SPASMS Citalopram Hydrobromide 20 mg 08/18/23 10:00 08/18/23 10:04 Citalopram 20 Mg Tablet PO 20 mg DAILY KADEN Administration Enoxaparin Sodium 40 mg 08/18/23 10:00 08/18/23 10:04 Enoxaparin 40 Mg/0.4 Ml Syringe SC 40 mg DAILY KADEN Administration Sodium Chloride 250 mls @ 15 mls/hr 08/17/23 20:19 IV .[id number] PRN Additional IVPB Infusion Sodium Chloride 250 mls @ 15 mls/hr 08/17/23 20:19 IV .[id number] PRN Saline Flush Levetiracetam 500 mg 08/18/23 11:00 08/18/23 13:00 Levetiracetam 500 Mg Tablet PO 500 mg BID KADEN Administration Melatonin 3 mg 08/17/23 20:28 Melatonin 3 Mg Tablet PO QHS PRN PRN INSOMNIA Metoprolol Tartrate 100 mg 08/18/23 10:00 08/18/23 10:04 Metoprolol Tartrate 100 Mg Tablet PO 100 mg DAILY KADEN Administration Protocol Ondansetron HCl 4 mg 08/17/23 20:28 Ondansetron 4 Mg/2 Ml Vial IV Q8H PRN PRN NAUSEA/VOMITING Pantoprazole Sodium 40 mg 08/18/23 10:00 08/18/23 10:04 Pantoprazole Sodium 40 Mg Tablet PO 40 mg DAILY KADEN Administration Pravastatin Sodium 80 mg 08/17/23 22:00 08/17/23 21:55 Pravastatin 80 Mg Tablet PO 80 mg QHS KADEN Administration Sodium Chloride 10 - 40 ml 08/17/23 20:19 0.9% Saline Lock 10 Ml Syringe IV UD PRN SALINE FLUSH
[2023-08-18] MEDS: Pravastatin 80 MG Tablet PO (20:54)
[2023-08-19 02:18] VITALS: BP 126/64; PULSE 66; RESP 16; TEMP 36.9; O2SAT 96
[2023-08-19 07:48] VITALS: O2SAT 95
[2023-08-19 08:30] VITALS: BP 141/97; PULSE 64; RESP 14; TEMP 37.1; O2SAT 94
[2023-08-19] MEDS: Pantoprazole Sodium 40 MG Tablet PO (08:42)
[2023-08-19] MEDS: Aspirin 81 MG TAB.CHEW PO (08:42)
[2023-08-19] MEDS: amLODIPine 5 MG Tablet PO (08:42)
[2023-08-19 08:43] VITALS: BP 141/97; PULSE 64
[2023-08-19] MEDS: Metoprolol Tartrate 100 MG Tablet PO (08:43)
[2023-08-19] MEDS: Enoxaparin 40 MG/0.4 ML Syringe SC (08:43)
[2023-08-19] MEDS: levETIRAcetam 500 MG Tablet PO (08:43)
[2023-08-19] MEDS: Citalopram 20 MG Tablet PO (08:43)
[2023-08-19 10:39] VITALS: BP 147/97; PULSE 71; RESP 14; TEMP 37.1; O2SAT 99
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
--- NOTE | 2023-08-19 11:24 | CASEMGMT ---
Patient has order for discharge. RN CM in to discuss needs at discharge. Patient denies needs at discharge. Patient had no further questions or concerns.
--- NOTE | 2023-08-19 11:34 | PHA.DC_ITS ---
Pharmacy [facility] Pharmacy Service has performed discharge medication reconciliation and counseling for this patient. 1. LEVETIRACETAM 500MG PO BID The patient's discharge medication list was reviewed for discrepancies and discrepancies were resolved. The patient was counseled on the following discharge medications and changes in medications for homegoing were reviewed. The Reason for Use, instructions for use, and potential side effects were reviewed for all new medications. The patient's questions regarding all of their medications were answered. The patient was able to verbally demonstrate an understanding of their discharge medications. Medications at Discharge Home Medications aspirin 81 mg chewable tablet 81 mg PO DAILY@0800 heart health 06/18/13 gabapentin 300 mg capsule 300 mg PO TID PRN PRN NERVE PAIN 06/18/13 lisinopril 20 mg tablet 20 mg PO DAILY blood pressure 06/18/13 metoprolol tartrate 50 mg tablet 100 mg PO DAILY blood pressure 06/18/13 pravastatin 80 mg tablet 80 mg PO DAILY 06/18/13 epinephrine 0.3 mg/0.3 mL injection, auto-injector 0.3 mg (0.3 mL) IM X1 allergies ##1 04/19/14 baclofen 10 mg tablet 10 mg PO DAILY PRN PRN Spasms 02/24/20 amlodipine 5 mg tablet 5 mg PO DAILY blood pressure 08/17/23 citalopram 20 mg tablet 20 mg PO DAILY depression 08/17/23 omeprazole 40 mg capsule,delayed release 40 mg PO DAILY reflux 08/17/23 tadalafil 5 mg tablet 5 mg PO DAILY ED 08/17/23 levetiracetam 500 mg tablet 500 mg PO BID #60 tabs 08/19/23
== END 2023-08-19 10:39 | disposition home or self-care (01) ==
LOC: ED 19:30 → PCU 20:31
PROVIDERS: Admitting Provider Hospitalist; Emergency Provider Emergency Medicine; PCP Family Medicine; Referring Provider Hospitalist; Visit Provider Student in an Organized Health Care Education/Training Program
DX: R56.9 Unspecified convulsions (principal); Z79.82 Long term (current) use of aspirin; E87.20 Acidosis, unspecified; F17.210 Nicotine dependence, cigarettes, uncomplicated; I10 Essential (primary) hypertension; Z79.899 Other long term (current) drug therapy; Z87.820 Personal history of traumatic brain injury; G89.29 Other chronic pain; E78.5 Hyperlipidemia, unspecified; K21.9 Gastro-esophageal reflux disease without esophagitis; F32.A Depression, unspecified; M54.9 Dorsalgia, unspecified; E66.9 Obesity, unspecified; Z68.36 Body mass index [BMI] 36.0-36.9, adult; R79.89 Other specified abnormal findings of blood chemistry
CPT/HCPCS: 36415; 70450; 70553; 80048; 80053; 80307; 82077; 83605; 84146; 85025; 85027; 93005; 94668; 95819; 96360; 96361; 96372; 99221; 99285; A9575; J7030; A4216; G0378

== ENCOUNTER → 2024-03-15 | Outpatient (CLI) | payer OTHER, SELFPAY ==
[2024-03-15 12:07] LABS: Absolute Lymphocyte Count 2.17 X10^3/uL (0.83-4.51); Absolute Neutrophil Count 3.1 X10^3/uL (2.0-7.7); Basophil# 0.08 X10^3/uL; Basophil% 1.3 % (0-1); Eosinophil# 0.25 X10^3/uL; Eosinophils% 4.2 % (0-5); Hematocrit 44.2 % (40-54); Hemoglobin 14.5 g/dL (13.0-16.5); Lymphocyte # 2.17 X10^3/ul (0.83-4.51); Lymphocyte % 36.2 % (19-41); Mean Corp Hgb Conc 32.8 g/dL (32-36); Mean Corpuscular Volume 91.3 fL (80-94); Mean Platelet Vol. 10.4 fl (6.2-12.0); Monocyte# 0.41 X10^3/uL; Monocyte% 6.8 % (0-10); NRBC Flagged by Analyzer 0 % (0-5); Neutrophil # 3.05 X10^3/uL (2.7-7.7); Neutrophil % 50.8 % (47-70); Platelet Count 219 K/mm3 (150-450); RBC Distribution Width CV 13.2 % (11.6-14.6); RBC Distribution Width SD 44.4 fl (35.1-43.9); Red Blood Count 4.84 M/mm3 (4.6-6.2)
[2024-03-15 12:34] LABS: ALB/GLOB Ratio 1.1 RATIO (0.9-2.4); AST(SGOT) 16 U/L (15-37); Alanine Aminotransfer ALT/SGPT 21 U/L (16-61); Albumin, Serum 3.6 g/dL (3.2-5.0); Alkaline Phosphatase 40 U/L (45-117); Anion Gap 7 (5-15); BUN 24 mg/dL (7-18); BUN/Creat Ratio 15.8 RATIO (10-20); CPK Total, Creatine Kinase 164 U/L (39-308); Calcium,Total 9.2 mg/dL (8.5-10.1); Chloride 111 mmol/L (98-107); Creatinine, Serum 1.52 mg/dL (0.70-1.30); EST Glomerular Filtration Rate 52 mL/min (>60); Est Glom Filt Rate - Afr Amer 63 mL/min (>60); Globulin 3.4 g/dL (2.2-4.2); Glucose 95 mg/dL (74-106); Potassium 3.9 mmol/L (3.5-5.1); Sodium Level 139 mmol/L (136-145); Thyroid Stim Hormone (TSH) 1.12 uIU/mL (0.358-3.74)
== END | disposition home or self-care (01) ==
LOC: BFHLAB 11:04
PROVIDERS: PCP Family Medicine; Visit Provider Family Medicine
DX: R53.83 Other fatigue (principal); G56.10 Other lesions of median nerve, unspecified upper limb; R53.1 Weakness
CPT/HCPCS: 36415; 80053; 82140; 82550; 84443; 85025

== ENCOUNTER → 2024-03-31 | Outpatient (CLI) | payer OTHER, SELFPAY ==
[2024-03-31 12:43] LABS: BNP,B-Type NATRIURETIC PEPTIDE 35.7 pg/mL (0-100)
[2024-03-31 12:58] LABS: Iron 60 ug/dL (65-175)
[2024-03-31 14:45] LABS: Vitamin B12 299 pg/mL (211-911)
== END | disposition home or self-care (01) ==
LOC: BFHLAB 09:52
PROVIDERS: PCP Family Medicine; Referring Provider Family Medicine; Visit Provider Family Medicine
DX: D64.9 Anemia, unspecified (principal); R53.83 Other fatigue; R06.00 Dyspnea, unspecified
CPT/HCPCS: 36415; 82533; 82607; 82746; 83540; 83880

== ENCOUNTER 2025-03-31 16:52 | Outpatient (RCR) | payer BC, SELFPAY ==
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
--- NOTE | 2025-05-23 13:20 | HP.PTDCSUM_ITS ---
Discharge Summary D/C summary: It has been my pleasure to treat JENNIFER CAMILO referred by Dr. Juan Antonio Guerrero MD, with the diagnosis of BACK AND LEG PAIN for a total of 1 visit(s). Discharge Date: Please see the following information for a summary of their discharge status. Pain Bilateral Back: Pain Intensity (Out of 10): 4 Goals Goal 1:: Patient to be I with aquatic program Goal 2:: Patient improve gait with patient able to walk > 5 min with less pain Goal 3:: Patient to improve back oswestry score 3-5 points to improve QOL and function Goal 4:: Patient to improve strength BLE quads/hams/hip by 4-/5 to improve gait Goal 5:: Patient to demonstrate 30-40% improvement with less pain and improved f unction Plan Plan: PT INTERVENTIONS AQUATIC THERAPY DLS ,POSTURAL EX'S ,GRADED LUMBAR ROM ,BLE STRENGTHENING AND ACTIVITY MODIFICATION D/C Information d/c sentence: If there are questions or concerns regarding this patient's physical therapy, please feel free to call me at [phone]. Thank you for the referral of this patient. Sincerely, Jose J Sinha, PT, Cert MDT, OCS Balance/Gait/Functional tests Balance/Special Test Scores Oswestry Low Back Score: 34
== END 2025-03-31 19:00 | disposition home or self-care (01) ==
LOC: PT 16:52
PROVIDERS: PCP Family Medicine; Referring Provider Anesthesiology; Visit Provider Anesthesiology
DX: M54.9 Dorsalgia, unspecified (principal); M79.606 Pain in leg, unspecified
CPT/HCPCS: 97162

== ENCOUNTER → 2025-07-25 | Outpatient (CLI) | payer OTHER, SELFPAY ==
[2025-07-25 18:02] LABS: Hematocrit 41.4 % (40-54); Hemoglobin 13.7 g/dL (13.0-16.5); Immature Granulocytes Count 0.060 X10^3/uL (0.0-0.0); Mean Corp Hgb Conc 33.1 g/dL (32-36); Mean Corpuscular Volume 94.5 fL (80-94); NRBC Flagged by Analyzer 0 % (0-5); POSITIVE COUNT YES; RBC Distribution Width CV 13.1 % (11.6-14.6); RBC Distribution Width SD 45.2 fl (35.1-43.9); Red Blood Count 4.38 M/mm3 (4.6-6.2); White Blood Count 6.9 K/mm3 (4.4-11.0)
[2025-07-25 18:22] LABS: Cholesterol 188 mg/dL (<=200); Low Density Lipoprotein Calc. 75 mg/dL; Triglycerides 533 mg/dL; Very Low Density Lipoprotein 107 mg/dL (5-40); cholesterol:hdl ratio screen 6.67
[2025-07-25 18:24] LABS: AST(SGOT) 24 U/L (<=37); Alanine Aminotransfer ALT/SGPT 29 U/L (<=46); Albumin, Serum 4.5 g/dL (3.5-5.0); Alkaline Phosphatase 62 U/L (40-129); Anion Gap 13 (5-15); BUN 16 mg/dL (4-19); BUN/Creat Ratio 12.6 RATIO (10-20); Calcium,Total 10.0 mg/dL (7.6-11.0); Carbon Dioxide 23.9 mmol/L (21.0-32.0); Chloride 101 mmol/L (98-108); Globulin 2.5 g/dL (2.2-4.2); Glucose 113 mg/dL (70-99); Potassium 4.2 mmol/L (3.3-5.1)
[2025-07-25 19:32] LABS: Differential Indicated SCAN CRITERIA MET
[2025-07-25 22:18] LABS: Differential Comment SCANNED
== END | disposition home or self-care (01) ==
LOC: BFHLAB 13:55
PROVIDERS: PCP Family Medicine; Visit Provider Family Medicine
DX: Z00.00 Encounter for general adult medical examination without abnormal findings (principal)
CPT/HCPCS: 36415; 80053; 80061; 85025